=== PATIENT | male | born 1960 | race Caucasian/White ===

== ENCOUNTER 2017-12-05 04:30 | Observation (INO) ==
[~2017-12-05 04:30] MED LIST: Naloxone 0.4 MG/ML INJ IVP PRN
[2017-12-05] MEDS ORDERED: *HR* Heparin 5,000 UNIT/ML VIAL IVP PRN ×2 (04:33)
[2017-12-05] MEDS ORDERED: *HR* OxyCODONE Immed Rel 5 MG TABLET PO PRN (04:34)
--- NOTE | 2017-12-05 04:39 | Internal Med History&Physical ---
Date of Encounter: 12/05/17 Time of Encounter: 04:37 Assessment and Plan (1) Chest pain Current visit: Yes Status: Acute treated as NSTEMI at [facility] and started on heparin gtt will continue heparin gtt here, also needed IV morphine for pain trend trop, nitropaste, watch closely check TTE in the a.m repeat EKG cards eval check lipase cxr Qualifiers: Chest pain type: precordial pain Qualified Code(s): R07.2 - Precordial pain (2) COPD (chronic obstructive pulmonary disease) Current visit: No Status: Chronic now no longer smoking chronic Qualifiers: COPD type: unspecified COPD Qualified Code(s): J44.9 - Chronic obstructive pulmonary disease, unspecified (3) HTN (hypertension) Current visit: No Status: Acute Qualifiers: Hypertension type: essential hypertension Qualified Code(s): I10 - Essential (primary) hypertension (4) CAD (coronary artery disease) Current visit: No Status: Acute hx of [place] and stents Qualifiers: Coronary Disease-Associated Artery/Lesion type: [place] artery Associated angina: with unstable angina Qualified Code(s): I25.110 - Atherosclerotic heart disease of [place] coronary artery with unstable angina pectoris Internal Medicine - H&P: HPI Chief complaint: chest pain History of present illness: Mr. Cleaning is a 57 year old male who presents as a transfer from [facility] for chest pain eval. He has a high risk hx of [place] reported x 3 in 2012-14, 2014 and 2016. Has 7 stents, last one in early 2017 at [facility]. He was seen at [facility] and was started on heparin gtt before transferring to [facility]. He developed symptoms at around 10 pm last evening when he was watching TV. CP along the left side, described sharp-pressure, somewhat changed with movement of his chest and breathing, radiate to the back. He took 3 nitros which did not help. On review, he reports recovering well from a cold 6 weeks ago. EKG personally reviewed with rate 113, sinus tachycardia but with lateral leads t wave flattening/inversion D-dimer tested at [facility] was wnl. Trop measured < 0.012 Past Med Surg Social Fam HX - Past Medical History Medical history: CHF, COPD, coronary artery disease, hyperlipidemia, hypertension, other Psychiatric history: no psych history - Past Surgical History Surgical History: appendectomy, cholecystectomy, other - Social History Smoking Status: Former smoker Alcohol use: none Drug use: none - Family History Father Hx Family Cardiac Disorders: Yes Sister Hx Family Endocrine Disorder: Yes (DM) Mother Hx Family Cardiac Disorders: Yes Hx Family Respiratory Disorders: Yes Hx Family Endocrine Disorder: Yes Internal Medicine - H&P: Meds Aspirin Enteric Coated [Aspirin EC] 325 mg PO DAILY #21 tablet. 09/15/16 [Rx] OxyCODONE Immed Rel [Roxicodone 5 MG] 5 - 10 mg PO Q6HR PRN #40 tablet 09/15/16 [Rx] Albuterol Sulfate [Albuterol Inhaler] 2 puff IH Q4HR PRN 09/16/16 [History] Atorvastatin [Lipitor] 40 mg PO HS 09/16/16 [History] Clopidogrel [Plavix] 75 mg PO DAILY 09/16/16 [History] Ipratropium [ATROVENT Inhaler] 2 puff IH Q6HR 09/16/16 [History] Lisinopril [Zestril] 10 mg PO DAILY 09/16/16 [History] Metoprolol XL (24 HR) Succ [Toprol Xl] 100 mg PO DAILY 09/16/16 [History] Nitroglycerin 1 spray TL AD PRN 09/16/16 [History] amLODIPine [Norvasc] 5 mg PO DAILY 09/16/16 [History] 3 Allergy/AdvReac Type Severity Reaction Status Date / Time acetaminophen AdvReac Hives Verified 09/16/16 08:36 [From Darvocet-N] lorazepam [From Ativan] AdvReac Confusion Verified 09/16/16 08:36 propoxyphene AdvReac Hives Verified 09/16/16 08:36 [From Darvocet-N] All Systems PM: A 10-system review of systems was performed and is negative for pertinent findings except as documented above in the HPI. Review of systems: ROS 14 point review of systems reviewed as best as possible given presentation. Pertinent positive or negative as per HPI or otherwise reviewed as negative - Constitutional Vitals: Temp Pulse Resp BP Pulse Ox 98.5 F 92 17 135/82 93 12/05/17 01:34 12/05/17 01:34 12/05/17 01:34 12/05/17 01:34 12/05/17 01:34 Exam: General - AAO x 3 Psych - Appropriate affect/speech. No agitation Eyes - JEN. Eye lids intact. No scleral icterus Neuro - No gross peripheral or central neuro deficits Heart - Sinus. RRR. S1 and S2 present. No added HS/murmurs appreciated. No elevated JVD appreciated. Lung - Adequate air entry b/l, No crackles/wheezes appreciated GI - Soft, non-tender. No hepatosplenomegaly/ascites. BS+ - No CVA/suprapubic tenderness or palpable bladder distension Skin - Intact. No rash/petechiae/ecchymosis. Warm extremities
[2017-12-05] MEDS ORDERED: Heparin 25,000 UNIT/500 ML D5W 25,000 UNIT/500 ML BAG IVC SCH (04:45)
[2017-12-05] MEDS: Nitroglycerin 1 INCH/GM PACKET TP SCH ×2 (05:03→13:30)
[2017-12-05] MEDS: *HR* Morphine 2 MG/ML SYRINGE IVP PRN ×4 (05:04→21:02)
[2017-12-05 05:28] LABS: Hematocrit 43.3 % (37.5-50.1); Hemoglobin 14.5 g/dL (12.9-16.9); Mean Corpuscular HGB Conc 33.5 g/dL (31.6-35.5); Mean Corpuscular Hemoglobin 32.2 pg (28.0-33.3); Mean Platelet Volume 9.3 fL (9.4-12.4); Platelet Count 254 K/mcL (140-400); Red Blood Count 4.51 M/mcL (4.19-5.50); Red Cell Distribution Width 13.8 % (11.5-14.5)
[2017-12-05 05:46] LABS: INR 1.1; Prothrombin Time 12.1 Seconds (9.4-12.1)
[2017-12-05 05:49] LABS: Activated Partial Thrombo Time 44.4 Seconds (26.0-36.0)
[2017-12-05] MEDS: Aspirin Enteric Coated 325 MG Tablet PO SCH (08:44)
[2017-12-05] MEDS: Metoprolol XL (24 HR) Succ 50 MG TAB.ER.24H PO SCH (08:44)
[2017-12-05] MEDS ORDERED: Ipratropium 1 PUFF INHALER IH SCH (10:00)
[2017-12-05] MEDS: Ipratropium/Albuterol Neb 3 ML IH SCH ×3 (11:13→22:00)
[2017-12-05 11:53] LABS: Basophils # 0.1 K/mcL (0.0-0.2); Eosinophils # 0.3 K/mcL (0.0-0.6); Eosinophils % 3.9 %; Hematocrit 43.6 % (37.5-50.1); Hemoglobin 14.5 g/dL (12.9-16.9); Immature Granulocytes % 0.1 % (0-4); Lymphocytes # 2.1 K/mcL (0.6-4.6); Lymphocytes % 27.2 %; Mean Corpuscular HGB Conc 33.3 g/dL (31.6-35.5); Mean Corpuscular Hemoglobin 31.9 pg (28.0-33.3); Mean Platelet Volume 9.5 fL (9.4-12.4); Monocytes # 0.8 K/mcL (0.0-1.3); Monocytes % 9.7 %; Neutrophils # 4.5 K/mcL (1.6-8.9); Platelet Count 247 K/mcL (140-400); Red Blood Count 4.54 M/mcL (4.19-5.50); Red Cell Distribution Width 13.8 % (11.5-14.5); Segmented Neutrophils % 58.1 %
[2017-12-05] MEDS ORDERED: Adenosine 90 MG/30 ML MLS IV ONE (12:21)
--- NOTE | 2017-12-05 12:38 | Electrocardiograph Report ---
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
[2017-12-05] MEDS ORDERED: Heparin 1,000 UNITS/500 mL 500 ML ONE (14:01)
[2017-12-05] MEDS ORDERED: 0.9 % Sodium Chloride 1,000 ML ONE ×2 (14:01→14:21)
[2017-12-05] MEDS ORDERED: *HR* Heparin 10,000 UNIT/10 ML VIAL ONE (14:01)
[2017-12-05] MEDS ORDERED: Verapamil 5 MG/2 ML VIAL ONE (14:01)
[2017-12-05] MEDS ORDERED: Nitroglycerin 1,000 MCG/10 ML VIAL IV ONE (14:01)
[2017-12-05] MEDS ORDERED: *HR* Midazolam HCl 5 MG/5 ML VIAL IVP ONE (14:24)
[2017-12-05] MEDS ORDERED: *HR* FentaNYL (PF) 100 MCG/2 ML VIAL ONE (14:24)
--- NOTE | 2017-12-05 14:35 | Pre-Sedation Evaluation ---
Pre-sedation evaluation - Pre-sedation checklist Date of procedure: 12/05/17 Procedure: Heart cath Recent Vitals: Last Vital Signs Temp 98.0 F 12/05/17 07:35 Pulse 98 12/05/17 07:35 Resp 17 12/05/17 11:13 BP 132/78 12/05/17 07:35 Pulse Ox 92 12/05/17 11:13 H&P (including ROS) documented in medical record: Yes Previous reaction to sedatives/anesthetics: No Dietary Status: NPO after Midnight Dentition: No loose teeth or bridges ASA Classification *see protocol: CLASS II-Mild systemic disease Plan of Care: Pt appropriate candidate for procedure/moderate/conscious sedation , Risks/benefits of procedure/sedation discussed w/ patient/family
--- NOTE | 2017-12-05 15:03 | Event Note ---
Date of Encounter: 12/05/17 Time of Encounter: 15:00 - Cardiology Event Note Prelim [facility] Normal EF RCA [employer] with left to right collaterals. Mid LCx 50-60% not functionally significant by FFR No lesions for revascularization/PCI.
--- NOTE | 2017-12-05 15:19 | Invasive Diagnostic Lab Proc ---
Name: Manish Cleaning Date of Study: 12/05/2017 Date: 1960 Ht: 64.2in Medical Record#: [id number] Age: 57 Wt: 209.44lb Gender: Male BSA: 2. 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 H&P is on chart. ID band is on and ID verified with patient. Patient NPO for procedure The procedure was described for the patient and questions were answered. Blood Pressure: 132/78 ECG is on chart. Rhythm: NSR Plan of Care Patient will tolerate the procedure without complications. Adequate level of comfort will be maintained. Hemodynamics will remain stable Patient will recover from procedure without complications. Respiratory function will be maintained. Cardiac rhythm will remain stable. Patient temperature will be maintained. Patient and/or family have verbalized understanding of the procedure. Patient Education Intravenous Access Time IV Size Location DC'd Fluid/Drip Rate Units RN 02:12 PM 20g 1 1/4" Patent On Arrival Rt Hand 02:26 PM 22g 1" Patent On Arrival Lt Wrist 0.9NaCl 50 ml/hr Gina Harry RN Allergies ACET./CODEINE (300MG +30MG) Acetaminophen/Propoxyphene N Codeine propoxyphene DARVACET, CODEINE Naproxen lorazepam acetaminophen Vital Signs Time BP (mmHg) HR (bpm) O2 Sat. RR (bpm) LOC 02:13 PM 132 / 78 98 92 % 16 5 = Fully awake and oriented or at pre-proc level 02:24 PM / % 5 = Fully awake and oriented or at pre-proc level 02:30 PM / % 5 = Fully awake and oriented or at pre-proc level 02:30 PM / % 4 = Oriented but drowsy 02:43 PM 121 / 84 86 93 % 25 02:48 PM 121 / 79 84 94 % 20 02:53 PM 114 / 69 87 91 % 20 02:21 PM 157 / 90 78 98 % 16 02:28 PM 145 / 101 75 97 % 11 02:33 PM 136 / 97 80 96 % 18 02:38 PM 136 / 88 85 94 % 24 02:45 PM / % 4 = Oriented but drowsy Procedural Medications Time Medication Dose Units Method Given By 02:18 PM Oxygen 2 L/min nasal cannula Gina Harry RN 02:25 PM Versed 2 mg Intravenous Gina Harry RN 02:26 PM Fentanyl 50 mcg Intravenous Gina Harry RN 02:36 PM Lidocaine 2% 0.5 ml Subcutaneous Venu Shepherd MD, FACC 02:37 PM Heparin 3000 units Nitroglycerin 200 mcg Verapamil 2.5 mg Intraarterial Venu Shepherd MD, FACC 02:49 PM Nitroglycerin 200 mcg Intracoronary Venu Shepherd MD 02:51 PM Adenosine 999 ml/hr Intravenous Gina Harry (RN) 02:54 PM Adenosine 0 ml/hr Intravenous Gina Harry (RN) 03:00 PM Oxygen 4 L/min nasal cannula Gina Harry RN ASA Classification: CLASS II- Mild systemic disease (i.e. well-controlled diabetes, hypertension, asthma, cigarette smoking) Milady Score Preprocedure Postprocedure Activity 2- Moves 4 extremities sustained head lift Activity 2- Moves 4 extremities sustained head lift Circulation 2- SBP +/= 20 points of pre-anesthetic level Circulation 2- SBP +/= 20 points of pre-anesthetic level Consciousness 2- Awake and alert oriented x 3 Consciousness 2- Awake and alert oriented x 3 O2 Saturation 2- Able to maintain O2 satruation of 92% on room air O2 Saturation 2- Able to maintain O2 satruation of 92% on room air Respiratory 2- Able to deep breathe and cough well Respiratory 2- Able to deep breathe and cough well Total Score 10 Total Score 10 Contrast Agent: Isovue Diagnostic Contrast: 83 ml Total Contrast: 83 ml Fluoro Dose: 316 mGy Activated Clotting Time Time Seconds to Clot 02:52 PM 260 Procedure Log Time Note Enter By 02:07 PM CathStat 02:15 PM 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 lparsley 02:15 PM Procedure start 14:15 lparsley 02:17 PM Callie Buenrostro RT Position: Monitor Time in: 14:17 [email or web address] 02:17 PM Santy Rogers RN Position: Scrub Time in: 14:17 [email or web address] 02:17 PM Gina Harry RN Position: Iron Plastic Bullet Maker Time in: 14:17 lparsley 02:18 PM Sites, Estrella RT (R) Position: Time in: 14:18 lparsley 02:18 PM Patient charges- Angio tray pack, Navilyst 3mm J, Pulse Oximetry and ACIST tubing and transducer lparsley 02:18 PM Case Delayed No lparsley 02:18 PM Hair removed from procedure site in procedure lab using clippers. Right wrist & Rt groin prepped with Chloraprep by Gina Harry RN, safety strap applied then patient was draped. Skin intact. lparsley 02:18 PM Physicchaz paged/called 14:18. lparsley 02:18 PM Physicchaz responded and notified patient is ready 14:18 lparsley 02:18 PM Physician arrived 14:18 lparsley 02:18 PM Joseluis and fabi completed [facility] 02:18 PM Sign in performed according to hospital policy. lparsley 02:18 PM Procedure start 14:18 lparsley 02:18 PM Time: 14:18 Oxygen on at 2 L/min per nasal cannula by Gina Harry RN [facility] 02:21 PM Vitals capture started with the following parameters, Patient=Adult, Interval=5 min, Initial Fgavcwmv=763 mmHg, Deflation Rate=5 mmHg, Cuff placed on Left Arm 02:21 PM HR=78 bpm, SXZK=544/90 mmhg, SpO2=98.0 %, Resp=16 B/min, Comment=NSR 02:24 PM Callie Buenrostro RT Position: Scrub Time in: 14:24 [email or web address] 02:24 PM Luly Dotson RN Position: Monitor Time in: 14:24 lpalaquita 02:24 PM Time: 14:23 Patient comfortable and pain free: Yes [email or web address] 02:24 PM Time: 14:24LOC: 5 = Fully awake and oriented or at pre-proc level lparsley 02:26 PM Time: 14:25 Versed 2 mg Intravenous Given by Gina Harry RN 02: PM Time: 14:26 Fentanyl 50 mcg Intravenous Given by Gina Harry RN 02:26 PM NIBP STAT measurement started. 02:27 PM Vitals capture started with the following parameters, Patient=Adult, Interval=5 min, Initial Xhgfpomg=537 mmHg, Deflation Rate=5 mmHg, Cuff placed on Left Arm 02:28 PM HR=75 bpm, VJUA=183/101 mmhg, SpO2=97.0 %, Resp=11 B/min, Comment=NSR 02:28 PM Recorded ECG: HR=77 Condition=Condition 1 02:30 PM Time: 14:30 Patient comfortable and pain free: Yes mm 02:30 PM Time: 14:30LOC: 5 = Fully awake and oriented or at pre-proc level tsoumm 02:32 PM Clinical Presentation: Unstable angina mm 02:33 PM Pressure channel 2 zeroed. 02:33 PM HR=80 bpm, HQJZ=096/97 mmhg, SpO2=96.0 %, Resp=18 B/min, Comment=NSR 02:36 PM Time out performed according to hospital policy mm 02:36 PM Time: 14:36 0.5 ml Lidocaine 2% to right radial Subcutaneous Given by Venu Shepherd MD, [facility] oumm 02:37 PM Access obtained by percutaneous puncture. 6Fr 10cm Terumo Glidesheath sheath placed in right Radial artery. [id number] mm 02:37 PM Time: 14:37 Patient given 3,000 units Heparin, 200 mcg Nitroglycerin, and 2.5 mg Verapamil Intraarterial by Venu Shepherd MD, [facility]. This is given to reduce risk of vessel spasm and thrombosis. tsmm 02:37 PM 5Fr TIG catheter inserted over the wire [facility] mm 02:37 PM 0.035 260cm Navilyst 3mmJ wire [id number] oumm 02:38 PM HR=85 bpm, HRAK=077/88 mmhg, SpO2=94.0 %, Resp=24 B/min, Comment=NSR 02:39 PM Wire removed mm 02:40 PM RCA angiography performed in multiple views. tsoummers 02:40 PM Recorded Pressure: Ao, HR=84, Condition=Condition 1 (Aorta) Ao 99/77/89 02:40 PM LCA angiography performed in multiple views. tsoummers 02:40 PM Recorded Pressure: Ao, HR=87, Condition=Condition 1 (Aorta) Ao 96/73/84 02:43 PM Catheter removed tsoumm 02:43 PM HR=86 bpm, JPHJ=280/84 mmhg, SpO2=93.0 %, Resp=25 B/min, Comment=NSR 02:43 PM 5Fr Pigtail catheter inserted over the wire [facility] tsoumm 02:43 PM Catheter selectively placed in left ventricle tsoummers 02:44 PM Recorded Pressure: LV, HR=91, Condition=Condition 1 (Left Ventricle) LV 112/1/7 02:44 PM Bolus angiogram of left Ventricle complete: 10 ml/sec for a total of 20 mls tsoummers 02:44 PM Recorded Pressure: LV, HR=91, Condition=Condition 1 (Left Ventricle) LV 123/-2/8 02:44 PM Inflation device was opened. tsoummers 02:45 PM Recorded Pressure: LV, Ao, HR=88, Condition=Condition 1 (Left Ventricle) LV 109/0/8, (Aorta) Ao 105/69/83 02:45 PM Time: 14:30 Patient comfortable and pain free: Yes oummers 02:45 PM Time: 14:30LOC: 4 = Oriented but drowsy tsoummers 02:45 PM catheter removed intact. mm 02:46 PM Pressure channel 1 zeroed. 02:47 PM Pressure channel 1 zeroed. 02:47 PM 6Fr CLS 3.0 Runway guide catheter was used to cannulate the PCI vessel successfully. reused? No tsoummers 02:48 PM HR=84 bpm, TBFP=064/79 mmhg, SpO2=94.0 %, Resp=20 B/min, Comment=NSR 02:48 PM .014 [place] 190cm guide wire across target lesion- successful. reused? No tsoummers 02:48 PM Asist FFR Catheter advanced to target lesion. mm 02:49 PM Time: 14:49 Nitroglycerin 200 mcg Intracoronary Given by Venu Shepherd MD 02:49 PM Coronary Dominance: Co-dominant tsoumm 02:49 PM Lesion found in Proximal RCA. Pre Stenosis: 100 Pre ANIYAH Flow: 0: No Flow/No perfusion tsoummers 02:50 PM Lesion found in Mid LAD. Pre Stenosis: 50 Pre ANIYAH Flow: oummers 02:50 PM Lesion found in LMCA. Pre Stenosis: 20 Pre ANIYAH Flow: tsoummers 02:50 PM Left Main Coronary Artery with 20% stenosis tsoummers 02:50 PM Right Coronary, Right Posterior Descending Arteries with Right Posterolateral and Acute Marginal branches with 100 % stenosis. tsoummers 02:50 PM Mid/Distal Left Anterior Descending Coronary Artery and diagonal branches with 50% stenosis. tsoumm 02:51 PM Recorded Pressure: Ao, HR=86, Condition=Condition 1 (Aorta) Ao 104/80/91 02:52 PM Time: 14:51 Adenosine 999 ml/hr administered Intravenous by Gina Harry (RN) [facility] PM Santy Rogers RN Position: Nurse Time in: 14:52 oumm 02:52 PM Recorded Pressure: Ao, HR=83, Condition=Condition 1 (Aorta) Ao 104/69/84 02:53 PM HR=87 bpm, RKFO=226/69 mmhg, SpO2=91.0 %, Resp=20 B/min, Comment=NSR 02:54 PM Adenosine off. 02:54 PM Time: 14:54 Adenosine 0 ml/hr administered Intravenous by Gina Harry (RN) [facility] 02:54 PM FFR Measurement: 0.91 [facility] 02:55 PM Flow Wire/Catheter removed intact mm 02:55 PM Guide wire removed intact. mm 02:55 PM Guide catheter removed intact. [facility] 02:56 PM Procedure completed at 14:56 [facility] 02:57 PM ASA Class CLASS II- Mild systemic disease (i.e. well-controlled diabetes, hypertension, asthma, cigarette smoking) [facility] 02:57 PM Sign out completed: Radiation Dose 316.41 mGy Fluoro Time: 3.2 Isovue 370 - 200ml contrast 83 ml given by Venu Shepherd MD, FACC. Complications: NoneCardiac Rehab Consult needed: NoConfirmed administered medications: Yes [facility] 02:58 PM Isovue 370 - 200ml,1 Bottle(s) used. mm 02:58 PM Arterial sheath pulled, Vasc Band closure device used and was Successful S/N. mm 02:58 PM 10 ml air in Vasc Band. oumm 02:58 PM Estimated Blood Loss: minimal 02:58 PM Post ECG NSR mm 02:58 PM Post Blood Pressure 123/75 oumm 02:58 PM 14:58 Post Pulses Rt Radial 1+ 02:58 PM Information taught Cardiac Cath and IVUS/Flowire 02:58 PM Education needs Procedure, Plan of Care, and Responsibilities of Patient in Care oumm 02:58 PM Learning barriers :None 02:59 PM Education Methods Verbal 02:59 PM Education evaluation Able to repeat information 02:59 PM Site status No bleeding/hematoma - Rt Wrist as reported by Callie Buenrostro RT at 14:59 mm 02:59 PM Plavix, Effient or Brilinta given No oumm 02:59 PM Delay to floor No oumm 02:59 PM Complications: None mm 02:59 PM At 14:52 the ACT was 260 seconds. 02:59 PM Fluoro Time: 3.2 02:59 PM Isovue 370 - 200ml contrast 83 ml given by Venu Shepherd MD, [facility]. mm 02:59 PM Radiation Dose 316.41 mGy mm 03:00 PM Time: 15:00 Oxygen on at 4 L/min per nasal cannula by Gina Harry RN 03:01 PM Time: 14:45LOC: 4 = Oriented but drowsy oumm 03:01 PM Time: 14:45 Patient comfortable and pain free: Yes mm 03:05 PM Lesion found in Mid Circumflex. Pre Stenosis: 60 Pre ANIYAH Flow: 3: Complete and Brisk Flow/Perfusion tsoumm 03:05 PM Circumflex, Obtuse Marginal, Left Posterior Descending, and Left Posterolateral Coronary Arteries with 60 % stenosis. tsoumm 03:12 PM Patient out of room: 15:12 tom Complications Complication None Hemodynamics Pressures Site Systolic/A Wave Diastolic/V Wave Mean AO 99 77 89 AO 96 73 84 LV 112 1 7 LV 123 -2 8 LV 109 0 8 AO 105 69 83 AO 104 80 91 AO 104 69 84 Post Procedure Information Blood Pressure: 123/75 mmHg Rhythm: NSR Post procedural instructions were given Closure Device Time Device Success/Fail 12/05/2017 2:57:00 PM Mechanical Compression Successful Site Checks Time Location Status Staff Sheath In? Note 02:59 PM Rt Wrist No bleeding/hematoma Callie Buenrostro RT Pulses Time Site Pre-Procedure Post-Procedure Note 12/05/2017 2:13:00 PM Bilateral DP & PT 2+ 12/05/2017 2:13:00 PM Bilateral radial 2+ 2:58:00 PM Rt Radial 1+ Updated by Luly Dotson RN on 12/05/2017 3:13:25 PM electronically signed on 12/05/2017 3:13:51 PM with status of Final
--- NOTE | 2017-12-05 16:31 | Event Note ---
Date of Encounter: 12/05/17 Time of Encounter: 16:30 - Cardiology Event Note Per 's event note. No intervention needed on [facility]. Cardiology will sign off and will follow in outpatient setting.
[2017-12-06] MEDS: *HR* Morphine 2 MG/ML SYRINGE IVP PRN (01:14)
[2017-12-06] MEDS: Ipratropium/Albuterol Neb 3 ML IH SCH ×2 (03:39→09:20)
[2017-12-06] MEDS: Nitroglycerin 1 INCH/GM PACKET TP SCH (05:31)
[2017-12-06 07:40] LABS: Alanine Aminotransferase 27 Units/L (7-52); Albumin 3.5 g/dL (3.5-5.7); Albumin/Globulin Ratio 1.3 (1.1-2.2); Alkaline Phosphatase 76 Units/L (34-104); Aspartate Amino Transferase 14 Units/L (13-39); BUN/Creatinine Ratio 18 (6-26); Bilirubin,Total 0.4 mg/dL (0.3-1.0); Blood Urea Nitrogen 16 mg/dL (6-20); Calcium 9.1 mg/dL (8.6-10.3); Carbon Dioxide 26 mEq/L (23-29); Chloride 106 mEq/L (98-107); Globulin 2.8 g/dL (2.4-3.5); Glucose 114 mg/dL (70-105); Osmolality,Calculated 288 (280-300); Potassium 3.7 mEq/L (3.5-5.1); Sodium 138 mEq/L (136-145); Total Protein 6.3 g/dL (6.4-8.9); eGFR For African Americans > 60 (> 60); eGFR For Non-African Americans > 60 (> 60)
[2017-12-06] MEDS: Aspirin Enteric Coated 325 MG Tablet PO SCH (07:49)
[2017-12-06] MEDS: Metoprolol XL (24 HR) Succ 50 MG TAB.ER.24H PO SCH (07:50)
--- NOTE | 2017-12-06 11:21 | Discharge Summary ---
Date of Encounter: 12/06/17 Time of Encounter: 11:19 - Discharge Diagnosis (1) Chest pain Priority: Primary Status: Acute Qualifiers: Chest pain type: precordial pain Qualified Code(s): R07.2 - Precordial pain (2) COPD (chronic obstructive pulmonary disease) Priority: Secondary Status: Chronic Qualifiers: COPD type: unspecified COPD Qualified Code(s): J44.9 - Chronic obstructive pulmonary disease, unspecified (3) HTN (hypertension) Priority: Secondary Status: Chronic Qualifiers: Hypertension type: essential hypertension Qualified Code(s): I10 - Essential (primary) hypertension (4) CAD (coronary artery disease) Priority: Secondary Status: Chronic Qualifiers: Coronary Disease-Associated Artery/Lesion type: [place] artery [place] vs. transplanted heart: [place] heart Associated angina: with unstable angina Qualified Code(s): I25.110 - Atherosclerotic heart disease of [place] coronary artery with unstable angina pectoris - Discharge Medications Home Medications: Aspirin Enteric Coated [Aspirin EC] 325 mg PO DAILY #21 tablet. 09/15/16 [Rx] Albuterol Sulfate [Albuterol Inhaler] 2 puff IH Q4HR PRN 09/16/16 [History] Atorvastatin [Lipitor] 40 mg PO HS 09/16/16 [History] Clopidogrel [Plavix] 75 mg PO DAILY 09/16/16 [History] Lisinopril [Zestril] 10 mg PO DAILY 09/16/16 [History] Metoprolol XL (24 HR) Succ [Toprol Xl] 100 mg PO DAILY 09/16/16 [History] amLODIPine [Norvasc] 2.5 mg PO DAILY 09/16/16 [History] Gabapentin [Neurontin] 600 mg PO HS 12/05/17 [History] HYDROcodone/Acet 5/325 mg [[place] 5-325 mg] 2 tab PO Q8H PRN 12/05/17 [History] Allergies/Adverse Reactions: 3 Allergy/AdvReac Type Severity Reaction Status Date / Time acetaminophen Allergy Hives Verified 12/05/17 09:56 [From Darvocet-N] propoxyphene Allergy Hives Verified 12/05/17 09:56 [From Darvocet-N] lorazepam [From Ativan] AdvReac Confusion Verified 09/16/16 08:36 Procedures/tests Complete & Pending: Procedures Performed prior 72 hours Category Date Time Status CL Cardiac Catheterization [CL] Routine [employer] Vice President 12/05/17 11:49 Ordered EKG [ECG 12 lead ECG] [ECG] Stat Y 12/05/17 04:19 Completed EV echocardiogram Routine Y 12/05/17 04:32 Completed Date of admission: 12/05/17 01:16 Primary care physician: PCP NONE Consults: 12/05/17 04:36 Consult to Cardiology [CONS] Routine Comment: Consulting Provider: Cardiology Alyssa Reason for Consult: chest pain Call Completed: No Discharging clinician: Reema Root Anticipated date of discharge: 12/06/17 - Patient Status Disposition: Home, Self-Care Condition: Good Functional capacity at discharge: independent ambulation Overall status at discharge: patient is progressing back to baseline - Discharge Instructions Instructions: Chest Pain (DC) Follow Up With: NONE,PCP [Primary Care Provider] - Additional Instructions: F/up with Cardiology in [place] in 2-4 weeks F/up with PCP in 1-2 weeks - Diet and Activity Activity: resume usual activities as tolerated Diet: low fat, low cholesterol, low salt diet Hospital course: Mr. Cleaning is a 57 year old male with the above medical problems, was admitted with retrosternal chest pain. Patient was noted to have no acute ischemic changes on EKG, serum troponins remained normal. He has been started on IV heparin drip in the emergency room due to concern for ongoing chest pain with extensive cardiac history including multiple PTCAs in the past. Patient was continued on aspirin, Plavix, beta nubia, LISSETH inhibitor and statin. He was evaluated by cardiology and underwent left heart catheterization, which revealed no significant stenosis, no PCI was indicated. He is medically stable for discharge with outpatient cardiology follow-up. He is currently chest pain-free. - Time Spent with Patient Total time spent providing and/or coordinating discharge services: Greater than 30 minutes (40 min) - Constitutional Vitals: Temp Pulse Resp BP Pulse Ox 98.2 F 71 16 125/78 95 12/06/17 07:10 12/06/17 07:10 12/06/17 09:21 12/06/17 07:10 12/06/17 09:21 General appearance: Present: A&O X 3, answers questions appropriately - Cardiovascular Cardiovascular exam: Present: RRR, +S1, +S2. Absent: diastolic murmur, gallop, rubs, systolic murmur
[2017-12-06 11:24] VITALS: BP 146/99
== END 2017-12-06 12:22 | disposition home or self-care (01) ==
LOC: 2ANU
PROVIDERS: ADMIT Internal Medicine; ATTEND Internal Medicine

== ENCOUNTER 2021-04-13 22:27 | Observation (INO) ==
[2021-04-14] MEDS ORDERED: Naloxone 0.4 MG/ML INJ IVP PRN (00:50)
[2021-04-14] MEDS ORDERED: Ondansetron 4 MG/2 ML VIAL IVP PRN (00:50)
[2021-04-14] MEDS: Morphine Sulfate 2 MG/ML SYRINGE IVP PRN ×5 (01:31→20:25)
[2021-04-14 05:09] LABS: Hematocrit 45.8 % (37.5-50.1); Hemoglobin 15.2 g/dL (12.9-16.9); Mean Corpuscular HGB Conc 33.2 g/dL (31.6-35.5); Mean Corpuscular Hemoglobin 32.1 pg (28.0-33.3); Mean Corpuscular Volume 96.8 fL (83.0-100.0); Mean Platelet Volume 9.5 fL (9.4-12.4); Platelet Count 187 K/mcL (140-400); Red Blood Count 4.73 M/mcL (4.19-5.50); Red Cell Distribution Width 12.9 % (11.5-14.5); White Blood Count 5.1 K/mcL (4.3-11.1)
[2021-04-14 07:36] LABS: BUN/Creatinine Ratio 19 (6-26); Blood Urea Nitrogen 16 mg/dL (6-20); Calcium 9.1 mg/dL (8.6-10.3); Carbon Dioxide 21 mEq/L (23-29); Chloride 99 mEq/L (98-107); Chol/HDL Ratio 4.3 (0-4.9); Cholesterol 151 mg/dL (< 200); Glucose 108 mg/dL (70-105); HDL Cholesterol 35 mg/dL (40-59); LDL Cholesterol,Calculated 93 mg/dL (< 100); Osmolality,Calculated 278 (280-300); Potassium 4.8 mEq/L (3.5-5.1); Sodium 133 mEq/L (136-145); Triglycerides 113 mg/dL (< 150); eGFR For African Americans > 60 (> 60); eGFR For Non-African Americans > 60 (> 60)
[2021-04-14] MEDS ORDERED: Regadenoson 0.4 MG/5 ML SYRINGE IVP ONE (07:45)
[2021-04-14] MEDS: Ipratropium 1 PUFF INHALER IH SCH ×3 (11:22→22:28)
[2021-04-14] MEDS: Aspirin 81 MG TAB.CHEW PO SCH (11:36)
[2021-04-14] MEDS ORDERED: methylPREDNISolone 125 MG/2 ML VIAL IVP ONE (11:56)
[2021-04-14] MEDS: levoFLOXacin 750 MG/150 ML 750 MG/150 ML BAG IVPB SCH (12:55)
[2021-04-14] MEDS: Isosorbide MONOnitrate (24 HR) 30 MG TAB.ER.24H PO SCH (19:32)
[2021-04-14] MEDS: Ranolazine 500 MG TAB.ER.12H PO SCH (19:33)
[2021-04-14] MEDS: Budesonide/Formoterol 160/4.5 1 PUFF INH IH SCH (22:29)
[2021-04-15] MEDS: Morphine Sulfate 2 MG/ML SYRINGE IVP PRN ×3 (00:38→09:46)
[2021-04-15] MEDS: Gabapentin 300 MG CAPSULE PO SCH ×2 (01:07→09:03)
[2021-04-15 01:39] LABS: BUN/Creatinine Ratio 26 (6-26); Blood Urea Nitrogen 22 mg/dL (6-20); Calcium 9.1 mg/dL (8.6-10.3); Carbon Dioxide 26 mEq/L (23-29); Chloride 99 mEq/L (98-107); Glucose 202 mg/dL (70-105); Osmolality,Calculated 283 (280-300); Potassium 4.4 mEq/L (3.5-5.1); Sodium 132 mEq/L (136-145); eGFR For African Americans > 60 (> 60); eGFR For Non-African Americans > 60 (> 60)
[2021-04-15] MEDS: Ipratropium 1 PUFF INHALER IH SCH ×2 (04:18→10:22)
[2021-04-15] MEDS ORDERED: *HR* Enoxaparin 40 MG/0.4 ML SYRINGE SQ SCH (06:00)
[2021-04-15 07:55] VITALS: BP 135/70
[2021-04-15] MEDS: Ranolazine 500 MG TAB.ER.12H PO SCH (09:00)
[2021-04-15] MEDS ORDERED: Metoprolol XL (24 HR) Succ 50 MG TAB.ER.24H PO SCH (09:00)
[2021-04-15] MEDS ORDERED: Furosemide 40 MG TABLET PO SCH (09:00)
[2021-04-15] MEDS ORDERED: Sacubitril/Valsartan 49/51 MG 1 TABLET PO SCH (09:00)
[2021-04-15] MEDS ORDERED: predniSONE 20 MG TABLET PO SCH (09:00)
[2021-04-15] MEDS: Aspirin 81 MG TAB.CHEW PO SCH (09:01)
[2021-04-15] MEDS: Isosorbide MONOnitrate (24 HR) 30 MG TAB.ER.24H PO SCH (09:04)
[2021-04-15] MEDS: levoFLOXacin 750 MG/150 ML 750 MG/150 ML BAG IVPB SCH (09:08)
[2021-04-15] MEDS: Budesonide/Formoterol 160/4.5 1 PUFF INH IH SCH (10:21)
== END 2021-04-15 12:32 | disposition home or self-care (01) ==
LOC: 2NENU → SUATTDRO 04-14 00:09
PROVIDERS: ADMIT Internal Medicine; ATTEND Internal Medicine

== ENCOUNTER 2021-05-22 20:22 | Observation (INO) ==
[2021-05-22] MEDS ORDERED: Aspirin 81 MG TAB.CHEW PO ONE (20:40)
[2021-05-22 21:04] LABS: Basophils # 0.1 K/mcL (0.0-0.2); Basophils % 1.1 %; Eosinophils # 0.2 K/mcL (0.0-0.6); Eosinophils % 3.8 %; Hematocrit 37.2 % (37.5-50.1); Hemoglobin 12.3 g/dL (12.9-16.9); Immature Granulocytes % 0.2 % (0-4); Lymphocytes # 1.4 K/mcL (0.6-4.6); Lymphocytes % 25.7 %; Mean Corpuscular HGB Conc 33.1 g/dL (31.6-35.5); Mean Corpuscular Hemoglobin 32.8 pg (28.0-33.3); Mean Corpuscular Volume 99.2 fL (83.0-100.0); Mean Platelet Volume 9.8 fL (9.4-12.4); Monocytes # 0.8 K/mcL (0.0-1.3); Platelet Count 204 K/mcL (140-400); Red Blood Count 3.75 M/mcL (4.19-5.50); Red Cell Distribution Width 13.9 % (11.5-14.5); Segmented Neutrophils % 54.2 %; White Blood Count 5.5 K/mcL (4.3-11.1)
[2021-05-22] MEDS ORDERED: Morphine Sulfate 2 MG/ML SYRINGE IVP ONE (21:06)
[2021-05-22] MEDS ORDERED: Nitroglycerin 0.4 MG TAB.SUBL SL PRN (21:11)
[2021-05-22 21:15] LABS: Reactive Lymphocytes Present (Not Present)
[2021-05-22 21:23] LABS: INR 1.1; Prothrombin Time 12.6 Seconds (9.4-12.1)
[2021-05-22 21:26] LABS: Activated Partial Thrombo Time 30.8 Seconds (26.0-36.0)
[2021-05-22 21:26] LABS: BUN/Creatinine Ratio 12 (6-26); Blood Urea Nitrogen 11 mg/dL (6-20); Calcium 8.9 mg/dL (8.6-10.3); Carbon Dioxide 25 mEq/L (23-29); Chloride 104 mEq/L (98-107); Glucose 114 mg/dL (70-105); Osmolality,Calculated 288 (280-300); Potassium 3.2 mEq/L (3.5-5.1); Sodium 139 mEq/L (136-145); eGFR For African Americans > 60 (> 60); eGFR For Non-African Americans > 60 (> 60)
[2021-05-22 21:27] LABS: Troponin I < 0.03 ng/mL (< 0.04)
[2021-05-22] MEDS ORDERED: Naloxone 0.4 MG/ML INJ IVP PRN (23:53)
[2021-05-22] MEDS ORDERED: Ondansetron 4 MG/2 ML VIAL IVP PRN (23:53)
[2021-05-23 01:52] LABS: Hematocrit 36.5 % (37.5-50.1); Hemoglobin 11.8 g/dL (12.9-16.9); Mean Corpuscular HGB Conc 32.3 g/dL (31.6-35.5); Mean Corpuscular Hemoglobin 32.2 pg (28.0-33.3); Mean Corpuscular Volume 99.5 fL (83.0-100.0); Mean Platelet Volume 10.2 fL (9.4-12.4); Platelet Count 197 K/mcL (140-400); Red Blood Count 3.67 M/mcL (4.19-5.50); Red Cell Distribution Width 14.1 % (11.5-14.5); White Blood Count 4.4 K/mcL (4.3-11.1)
[2021-05-23 02:01] LABS: BUN/Creatinine Ratio 13 (6-26); Blood Urea Nitrogen 12 mg/dL (6-20); Calcium 8.8 mg/dL (8.6-10.3); Carbon Dioxide 26 mEq/L (23-29); Chloride 103 mEq/L (98-107); Glucose 99 mg/dL (70-105); Osmolality,Calculated 296 (280-300); Potassium 3.5 mEq/L (3.5-5.1); Sodium 143 mEq/L (136-145); eGFR For African Americans > 60 (> 60); eGFR For Non-African Americans > 60 (> 60)
[2021-05-23] MEDS ORDERED: Perflutren Lipid Microsphere 1.3 ML in 0.9 % Sodium Chloride 8.7 ML IVP PRN (04:15)
[2021-05-23] MEDS: Morphine Sulfate 2 MG/ML SYRINGE IVP PRN ×3 (04:22→14:22)
[2021-05-23] MEDS ORDERED: Ipratropium/Albuterol Neb 3 ML IH PRN (10:12)
[2021-05-23] MEDS: Gabapentin 300 MG CAPSULE PO SCH ×2 (15:40→23:09)
[2021-05-23] MEDS: Furosemide 40 MG TABLET PO SCH (15:40)
[2021-05-23] MEDS: Isosorbide MONOnitrate (24 HR) 60 MG TAB.ER.24H PO SCH (15:40)
[2021-05-23] MEDS: Budesonide/Formoterol 160/4.5 1 PUFF INH IH SCH (20:10)
[2021-05-23] MEDS ORDERED: Morphine Sulfate 2 MG/ML SYRINGE IVP ONE (21:16)
[2021-05-23] MEDS ORDERED: Morphine Sulfate 2 MG/ML SYRINGE ONE (21:40)
[2021-05-23] MEDS: Sacubitril/Valsartan 49/51 MG 1 TABLET PO SCH (23:09)
[2021-05-23] MEDS: Ranolazine 500 MG TAB.ER.12H PO SCH (23:09)
[2021-05-23] MEDS ORDERED: Ibuprofen 600 MG TABLET PO ONE (23:25)
[2021-05-24] MEDS ORDERED: Ibuprofen 600 MG TABLET PO ONE (03:45)
[2021-05-24] MEDS: Metoprolol XL (24 HR) Succ 50 MG TAB.ER.24H PO SCH (08:12)
[2021-05-24] MEDS: Sacubitril/Valsartan 49/51 MG 1 TABLET PO SCH ×2 (08:12→23:26)
[2021-05-24] MEDS: Furosemide 40 MG TABLET PO SCH (08:12)
[2021-05-24] MEDS: Gabapentin 300 MG CAPSULE PO SCH ×3 (08:12→23:27)
[2021-05-24] MEDS: Ranolazine 500 MG TAB.ER.12H PO SCH ×2 (08:13→23:26)
[2021-05-24] MEDS: Aspirin Enteric Coated 81 MG Tablet PO SCH (08:13)
[2021-05-24] MEDS: Isosorbide MONOnitrate (24 HR) 60 MG TAB.ER.24H PO SCH (08:13)
[2021-05-24 08:47] LABS: Hematocrit 36.9 % (37.5-50.1); Hemoglobin 12.1 g/dL (12.9-16.9); Mean Corpuscular HGB Conc 32.8 g/dL (31.6-35.5); Mean Corpuscular Hemoglobin 32.5 pg (28.0-33.3); Mean Corpuscular Volume 99.2 fL (83.0-100.0); Platelet Count 228 K/mcL (140-400); Red Blood Count 3.72 M/mcL (4.19-5.50); Red Cell Distribution Width 13.8 % (11.5-14.5); White Blood Count 5.3 K/mcL (4.3-11.1)
[2021-05-24] MEDS ORDERED: Isosorbide MONOnitrate (24 HR) 30 MG TAB.ER.24H PO SCH (09:00)
[2021-05-24] MEDS: Budesonide/Formoterol 160/4.5 1 PUFF INH IH SCH ×2 (09:56→19:44)
[2021-05-24] MEDS ORDERED: Morphine Sulfate 2 MG/ML SYRINGE IVP ONE (21:18)
[2021-05-25] MEDS: Budesonide/Formoterol 160/4.5 1 PUFF INH IH SCH (07:55)
[2021-05-25] MEDS ORDERED: Isosorbide MONOnitrate (24 HR) 30 MG TAB.ER.24H PO SCH (09:00)
[2021-05-25] MEDS: Ranolazine 500 MG TAB.ER.12H PO SCH (10:31)
[2021-05-25] MEDS: Sacubitril/Valsartan 49/51 MG 1 TABLET PO SCH (10:31)
[2021-05-25] MEDS: Gabapentin 300 MG CAPSULE PO SCH (10:31)
[2021-05-25] MEDS: Furosemide 40 MG TABLET PO SCH (10:31)
[2021-05-25] MEDS: Metoprolol XL (24 HR) Succ 50 MG TAB.ER.24H PO SCH (10:31)
[2021-05-25] MEDS: Aspirin Enteric Coated 81 MG Tablet PO SCH (10:31)
[2021-05-25 11:44] VITALS: BP 104/68
== END 2021-05-25 14:32 | disposition home or self-care (01) ==
LOC: EMEROOARM 20:22 → 3BNU 20:22 → SUATTDRO 23:35 → 3BNU 05-23 00:04
PROVIDERS: ADMIT Internal Medicine; ATTEND Nurse Practitioner

== ENCOUNTER 2021-08-17 02:07 | Inpatient (IN) ==
[2021-08-17 03:08] LABS: VBG HCO3 22 mEq/L (21-27); VBG PCO2 34 mmHg (41-51); VBG PH 7.42 pH Units (7.32-7.42); VBG PO2 35 mmHg (25-50)
[2021-08-17] MEDS ORDERED: Morphine Sulfate 2 MG/ML SYRINGE IVP ONE (03:10)
[2021-08-17 03:12] LABS: Basophils % 0.5 %; Eosinophils % 0.1 %; Hematocrit 49.1 % (37.5-50.1); Hemoglobin 16.9 g/dL (12.9-16.9); Immature Granulocytes % 0.6 % (0-4); Lymphocytes # 0.7 K/mcL (0.6-4.6); Lymphocytes % 8.2 %; Mean Corpuscular HGB Conc 34.4 g/dL (31.6-35.5); Mean Corpuscular Hemoglobin 32.8 pg (28.0-33.3); Mean Corpuscular Volume 95.2 fL (83.0-100.0); Mean Platelet Volume 9.7 fL (9.4-12.4); Neutrophils # 6.7 K/mcL (1.6-8.9); Platelet Count 179 K/mcL (140-400); Red Blood Count 5.16 M/mcL (4.19-5.50); Segmented Neutrophils % 78.6 %; White Blood Count 8.5 K/mcL (4.3-11.1)
[2021-08-17] MEDS ORDERED: 0.9 % Sodium Chloride 500 ML IV ONE (03:13)
[2021-08-17 03:21] LABS: BUN/Creatinine Ratio 14 (6-26); Blood Urea Nitrogen 13 mg/dL (6-20); Calcium 9.4 mg/dL (8.6-10.3); Carbon Dioxide 21 mEq/L (23-29); Chloride 91 mEq/L (98-107); Glucose 104 mg/dL (70-105); Osmolality,Calculated 270 (280-300); Potassium 3.3 mEq/L (3.5-5.1); Sodium 130 mEq/L (136-145); eGFR For African Americans > 60 (> 60); eGFR For Non-African Americans > 60 (> 60)
[2021-08-17 03:22] LABS: INR 1.1; Prothrombin Time 12.2 Seconds (9.4-12.1)
[2021-08-17 03:25] LABS: Activated Partial Thrombo Time 31.5 Seconds (26.0-36.0)
[2021-08-17 03:39] LABS: Troponin I 0.05 ng/mL (< 0.04)
[2021-08-17 04:02] LABS: Influenza A PCR Negative (Negative); Influenza B PCR Negative (Negative); Resp. Syncytial Virus PCR Negative (Negative)
[2021-08-17 04:08] LABS: SARS-CoV-2 by PCR (In House) Negative (Negative)
[2021-08-17] MEDS ORDERED: Isovue-370 500 ML BOTTLE IVP ONE (04:25)
[2021-08-17] MEDS ORDERED: Potassium Chloride Elixir 20 MEQ/15 ML UDC PO ONE (06:02)
[2021-08-17 06:12] LABS: Bilirubin,Urine Small (Negative); Blood,Urine Trace (Negative); Clarity,Urine Turbid (Clear); Color,Urine Yellow (Yellow); Glucose,Urine (UA) Normal (Normal); Hyaline Casts,Urine Few per lpf (None Seen); Ketones,Urine 60 mg/dL (Negative); Leukocyte Esterase,Urine Small (Negative); Mucus,Urine Few per lpf (None-Few); Nitrite,Urine Negative (Negative); PH,Urine 6.5 pH Units (5.0-8.0); Protein,Urine 200 mg/dL (Neg-Trace); Specific Gravity,Urine > 1.030 (1.010-1.025); Squamous Epithelial Cell,Urine Few per hpf (None-Few); WBC,Urine 15-30 per hpf (0-3)
[2021-08-17] MEDS ORDERED: cefTRIAXone 1,000 MG in Water for inj. (sterile) 10 ML IVP ONE (06:38)
[2021-08-17] MEDS ORDERED: Naloxone 0.4 MG/ML INJ IVP PRN (06:41)
[2021-08-17] MEDS ORDERED: Melatonin 3 MG TABLET PO PRN (06:41)
[2021-08-17] MEDS ORDERED: Aspirin 325 MG TABLET PO ONE (06:58)
[2021-08-17] MEDS ORDERED: *HR* LORazepam 2 MG/ML VIAL IVP PRN ×3 (07:08)
[2021-08-17] MEDS: Metoprolol XL (24 HR) Succ 50 MG TAB.ER.24H PO SCH ×2 (08:00→09:45)
[2021-08-17 08:04] LABS: Amphetamine Screen,Urine Positive ng/mL (Cutoff=1000); Barbiturate Screen,Urine Negative ng/mL (Cutoff=200)
[2021-08-17 08:05] LABS: Benzodiazepines Screen,Urine Negative ng/mL (Cutoff=300); Cannabinoid Screen,Urine Negative ng/mL (Cutoff = 50); Cocaine Screen,Urine Negative ng/mL (Cutoff= 300); Opiate Screen,Urine Positive ng/mL (Cutoff=300); Phencyclidine Screen,Urine Negative ng/mL (Cutoff=25)
[2021-08-17] MEDS ORDERED: 0.9 % Sodium Chloride 1,000 ML IVC SCH (08:15)
[2021-08-17] MEDS ORDERED: Furosemide 40 MG TABLET PO SCH (09:00)
[2021-08-17] MEDS ORDERED: GI Cocktail 40 ML EACH PO ONE (09:44)
[2021-08-17] MEDS: Folic Acid 1 MG TABLET PO SCH (09:45)
[2021-08-17] MEDS: cefTRIAXone 1,000 MG in Water for inj. (sterile) 10 ML IVP SCH (09:45)
[2021-08-17] MEDS ORDERED: diazePAM 10 MG/2 ML SYRINGE IVP ONE (09:46)
[2021-08-17] MEDS: 0.9 % Sodium Chloride 1,000 ML IVC SCH ×2 (09:46→23:32)
[2021-08-17] MEDS: Thiamine (B-1) 100 MG in 0.9 % Sodium Chloride 50 ML IVPB SCH (10:17)
[2021-08-17 11:14] LABS: Albumin 4.4 g/dL (3.5-5.7); Albumin/Globulin Ratio 1.4 (1.1-2.2); Bilirubin,Direct 0.2 mg/dL (0.0-0.2); Bilirubin,Indirect 0.8 mg/dL (0.0-1.0); Globulin 3.1 g/dL (2.4-3.5); Magnesium 2.2 mg/dL (1.6-2.6); Phosphorous 3.1 mg/dL (2.7-4.5); Total Protein 7.5 g/dL (6.4-8.9)
[2021-08-17] MEDS ORDERED: diazePAM 10 MG/2 ML SYRINGE IVP PRN ×3 (13:36)
[2021-08-17] MEDS: *HR* Heparin 5,000 UNIT/ML VIAL SQ SCH (16:18)
[2021-08-17] MEDS: diazePAM 10 MG/2 ML SYRINGE IVP PRN ×2 (16:19→20:54)
[2021-08-18 02:10] LABS: BUN/Creatinine Ratio 25 (6-26); Blood Urea Nitrogen 27 mg/dL (6-20); Calcium 8.7 mg/dL (8.6-10.3); Carbon Dioxide 22 mEq/L (23-29); Chloride 99 mEq/L (98-107); Glucose 74 mg/dL (70-105); Osmolality,Calculated 284 (280-300); Potassium 3.4 mEq/L (3.5-5.1); Sodium 135 mEq/L (136-145); eGFR For African Americans > 60 (> 60); eGFR For Non-African Americans > 60 (> 60)
[2021-08-18 02:14] LABS: Basophils # 0.1 K/mcL (0.0-0.2); Eosinophils # 0.1 K/mcL (0.0-0.6); Eosinophils % 1.1 %; Hematocrit 43.1 % (37.5-50.1); Immature Granulocytes % 0.5 % (0-4); Lymphocytes # 1.1 K/mcL (0.6-4.6); Lymphocytes % 17.7 %; Mean Corpuscular HGB Conc 33.6 g/dL (31.6-35.5); Mean Corpuscular Hemoglobin 32.8 pg (28.0-33.3); Mean Corpuscular Volume 97.5 fL (83.0-100.0); Mean Platelet Volume 10.1 fL (9.4-12.4); Monocytes # 0.8 K/mcL (0.0-1.3); Monocytes % 13.5 %; Neutrophils # 4.1 K/mcL (1.6-8.9); Platelet Count 152 K/mcL (140-400); Red Blood Count 4.42 M/mcL (4.19-5.50); Red Cell Distribution Width 15.7 % (11.5-14.5); Segmented Neutrophils % 66.2 %; White Blood Count 6.2 K/mcL (4.3-11.1)
[2021-08-18 02:26] LABS: Hemoglobin 14.5 g/dL (12.9-16.9)
[2021-08-18] MEDS: diazePAM 10 MG/2 ML SYRINGE IVP PRN ×4 (03:24→22:47)
[2021-08-18] MEDS: *HR* Heparin 5,000 UNIT/ML VIAL SQ SCH ×2 (05:32→18:16)
[2021-08-18] MEDS: Thiamine (B-1) 100 MG in 0.9 % Sodium Chloride 50 ML IVPB SCH (09:33)
[2021-08-18] MEDS: cefTRIAXone 1,000 MG in Water for inj. (sterile) 10 ML IVP SCH (09:34)
[2021-08-18] MEDS: Aspirin 81 MG TAB.CHEW PO SCH (09:34)
[2021-08-18] MEDS: Metoprolol XL (24 HR) Succ 50 MG TAB.ER.24H PO SCH (09:34)
[2021-08-18] MEDS: Folic Acid 1 MG TABLET PO SCH (09:35)
[2021-08-18] MEDS: 0.9 % Sodium Chloride 1,000 ML IVC SCH (14:11)
[2021-08-18] MEDS ORDERED: Haloperidol Lactate 5 MG/ML VIAL IVP ONE (23:32)
[2021-08-19 05:36] LABS: Basophils # 0.1 K/mcL (0.0-0.2); Basophils % 1.1 %; Eosinophils # 0.2 K/mcL (0.0-0.6); Eosinophils % 3.3 %; Hematocrit 41.5 % (37.5-50.1); Hemoglobin 13.6 g/dL (12.9-16.9); Immature Granulocytes % 0.2 % (0-4); Lymphocytes % 18.7 %; Mean Corpuscular HGB Conc 32.8 g/dL (31.6-35.5); Mean Corpuscular Hemoglobin 33.3 pg (28.0-33.3); Mean Corpuscular Volume 101.5 fL (83.0-100.0); Mean Platelet Volume 10.1 fL (9.4-12.4); Monocytes # 0.7 K/mcL (0.0-1.3); Monocytes % 12.6 %; Neutrophils # 3.5 K/mcL (1.6-8.9); Platelet Count 130 K/mcL (140-400); Red Blood Count 4.09 M/mcL (4.19-5.50); Red Cell Distribution Width 15.7 % (11.5-14.5); Segmented Neutrophils % 64.1 %; White Blood Count 5.4 K/mcL (4.3-11.1)
[2021-08-19 05:57] LABS: BUN/Creatinine Ratio 30 (6-26); Blood Urea Nitrogen 21 mg/dL (6-20); Calcium 8.7 mg/dL (8.6-10.3); Carbon Dioxide 19 mEq/L (23-29); Chloride 106 mEq/L (98-107); Glucose 70 mg/dL (70-105); Osmolality,Calculated 281 (280-300); Phosphorous 3.1 mg/dL (2.7-4.5); Sodium 135 mEq/L (136-145); eGFR For African Americans > 60 (> 60); eGFR For Non-African Americans > 60 (> 60)
[2021-08-19] MEDS: 0.9 % Sodium Chloride 1,000 ML IVC SCH ×2 (06:54→19:07)
[2021-08-19] MEDS: *HR* Heparin 5,000 UNIT/ML VIAL SQ SCH ×2 (06:59→16:48)
[2021-08-19] MEDS: Aspirin 81 MG TAB.CHEW PO SCH (08:05)
[2021-08-19] MEDS: Folic Acid 1 MG TABLET PO SCH (08:05)
[2021-08-19] MEDS: Metoprolol XL (24 HR) Succ 50 MG TAB.ER.24H PO SCH (08:05)
[2021-08-19] MEDS: cefTRIAXone 1,000 MG in Water for inj. (sterile) 10 ML IVP SCH (08:05)
[2021-08-19] MEDS: Thiamine (B-1) 100 MG in 0.9 % Sodium Chloride 50 ML IVPB SCH (08:08)
[2021-08-19 17:35] LABS: Amphetamine Screen,Urine Positive ng/mL (Cutoff=1000); Barbiturate Screen,Urine Negative ng/mL (Cutoff=200); Benzodiazepines Screen,Urine Positive ng/mL (Cutoff=200); Cannabinoid Screen,Urine Negative ng/mL (Cutoff = 50); Cocaine Screen,Urine Negative ng/mL (Cutoff= 300); Opiate Screen,Urine Negative ng/mL (Cutoff=300); Phencyclidine Screen,Urine Negative ng/mL (Cutoff=25)
[2021-08-19] MEDS: diazePAM 10 MG/2 ML SYRINGE IVP PRN (22:49)
[2021-08-20] MEDS: 0.9 % Sodium Chloride 1,000 ML IVC SCH ×2 (01:16→16:40)
[2021-08-20 03:29] LABS: Basophils # 0.1 K/mcL (0.0-0.2); Basophils % 1.2 %; Eosinophils # 0.2 K/mcL (0.0-0.6); Eosinophils % 4.5 %; Hematocrit 39.7 % (37.5-50.1); Hemoglobin 12.9 g/dL (12.9-16.9); Immature Granulocytes % 0.5 % (0-4); Lymphocytes # 0.9 K/mcL (0.6-4.6); Lymphocytes % 20.2 %; Mean Corpuscular HGB Conc 32.5 g/dL (31.6-35.5); Mean Corpuscular Hemoglobin 32.7 pg (28.0-33.3); Mean Corpuscular Volume 100.5 fL (83.0-100.0); Mean Platelet Volume 9.9 fL (9.4-12.4); Monocytes # 0.6 K/mcL (0.0-1.3); Monocytes % 12.9 %; Neutrophils # 2.6 K/mcL (1.6-8.9); Platelet Count 129 K/mcL (140-400); Red Blood Count 3.95 M/mcL (4.19-5.50); Red Cell Distribution Width 15.4 % (11.5-14.5); Segmented Neutrophils % 60.7 %; White Blood Count 4.3 K/mcL (4.3-11.1)
[2021-08-20 03:51] LABS: BUN/Creatinine Ratio 20 (6-26); Blood Urea Nitrogen 16 mg/dL (6-20); Calcium 8.9 mg/dL (8.6-10.3); Carbon Dioxide 25 mEq/L (23-29); Chloride 105 mEq/L (98-107); Glucose 119 mg/dL (70-105); Magnesium 1.7 mg/dL (1.6-2.6); Osmolality,Calculated 286 (280-300); Phosphorous 3.4 mg/dL (2.7-4.5); Potassium 3.6 mEq/L (3.5-5.1); Sodium 137 mEq/L (136-145); eGFR For African Americans > 60 (> 60); eGFR For Non-African Americans > 60 (> 60)
[2021-08-20] MEDS: *HR* Heparin 5,000 UNIT/ML VIAL SQ SCH ×2 (05:35→16:45)
[2021-08-20] MEDS: Levalbuterol Neb 1.25 MG/3 ML IH SCH ×4 (07:58→22:28)
[2021-08-20] MEDS: cefTRIAXone 1,000 MG in Water for inj. (sterile) 10 ML IVP SCH (08:25)
[2021-08-20] MEDS: Metoprolol XL (24 HR) Succ 50 MG TAB.ER.24H PO SCH (08:25)
[2021-08-20] MEDS: Aspirin 81 MG TAB.CHEW PO SCH (08:25)
[2021-08-20] MEDS: Thiamine (B-1) 100 MG TABLET PO SCH (08:25)
[2021-08-20] MEDS: Folic Acid 1 MG TABLET PO SCH (08:25)
[2021-08-20] MEDS: diazePAM 10 MG/2 ML SYRINGE IVP PRN (15:17)
[2021-08-21] MEDS ORDERED: Ondansetron 4 MG/2 ML VIAL IVP ONE (03:30)
[2021-08-21] MEDS: *HR* Heparin 5,000 UNIT/ML VIAL SQ SCH (03:37)
[2021-08-21] MEDS: diazePAM 10 MG/2 ML SYRINGE IVP PRN (03:44)
[2021-08-21] MEDS: Levalbuterol Neb 1.25 MG/3 ML IH SCH ×2 (04:26→09:42)
[2021-08-21 06:18] LABS: Basophils % 0.8 %; Eosinophils # 0.2 K/mcL (0.0-0.6); Eosinophils % 3.3 %; Hematocrit 38.1 % (37.5-50.1); Hemoglobin 12.9 g/dL (12.9-16.9); Immature Granulocytes % 0.2 % (0-4); Lymphocytes % 18.7 %; Mean Corpuscular HGB Conc 33.9 g/dL (31.6-35.5); Mean Corpuscular Hemoglobin 33.7 pg (28.0-33.3); Mean Corpuscular Volume 99.5 fL (83.0-100.0); Mean Platelet Volume 10.4 fL (9.4-12.4); Monocytes # 0.9 K/mcL (0.0-1.3); Monocytes % 17.1 %; Neutrophils # 3.1 K/mcL (1.6-8.9); Platelet Count 131 K/mcL (140-400); Red Blood Count 3.83 M/mcL (4.19-5.50); Red Cell Distribution Width 15.1 % (11.5-14.5); Segmented Neutrophils % 59.9 %; White Blood Count 5.1 K/mcL (4.3-11.1)
[2021-08-21 06:45] LABS: BUN/Creatinine Ratio 14 (6-26); Blood Urea Nitrogen 12 mg/dL (6-20); Calcium 9.1 mg/dL (8.6-10.3); Carbon Dioxide 22 mEq/L (23-29); Chloride 106 mEq/L (98-107); Glucose 105 mg/dL (70-105); Magnesium 1.6 mg/dL (1.6-2.6); Osmolality,Calculated 282 (280-300); Phosphorous 4.4 mg/dL (2.7-4.5); Potassium 3.5 mEq/L (3.5-5.1); Sodium 136 mEq/L (136-145); eGFR For African Americans > 60 (> 60); eGFR For Non-African Americans > 60 (> 60)
[2021-08-21 08:15] VITALS: BP 140/89; PULSE 77; TEMP 100
[2021-08-21] MEDS: cefTRIAXone 1,000 MG in Water for inj. (sterile) 10 ML IVP SCH (08:27)
[2021-08-21] MEDS: Folic Acid 1 MG TABLET PO SCH (08:28)
[2021-08-21] MEDS: Thiamine (B-1) 100 MG TABLET PO SCH (08:28)
[2021-08-21] MEDS: Metoprolol XL (24 HR) Succ 50 MG TAB.ER.24H PO SCH (08:29)
[2021-08-21] MEDS: Aspirin 81 MG TAB.CHEW PO SCH (08:29)
[2021-08-21 09:45] VITALS: O2SAT 97
== END 2021-08-21 11:35 | disposition home or self-care (01) | DRG 775 ==
LOC: EMEROOARM 02:07 → 3BNU 02:07
PROVIDERS: ADMIT Student in an Organized Health Care Education/Training Program; ATTEND Student in an Organized Health Care Education/Training Program

== ENCOUNTER 2021-12-18 21:33 | Observation (INO) ==
[2021-12-19] MEDS ORDERED: Ondansetron 4 MG/2 ML VIAL IVP PRN (07:42)
[2021-12-19] MEDS ORDERED: Naloxone 0.4 MG/ML INJ IVP PRN (07:42)
[2021-12-19] MEDS ORDERED: Perflutren Lipid Microsphere 1.3 ML in 0.9 % Sodium Chloride 8.7 ML IVP PRN (07:57)
[2021-12-19] MEDS: Aspirin 81 MG TAB.CHEW PO SCH (08:03)
[2021-12-19] MEDS: Morphine Sulfate 2 MG/ML SYRINGE IVP PRN ×3 (08:06→20:28)
[2021-12-19] MEDS ORDERED: Ranolazine 500 MG TAB.ER.12H PO SCH (09:00)
[2021-12-19] MEDS ORDERED: Isosorbide MONOnitrate (24 HR) 30 MG TAB.ER.24H PO SCH (09:00)
[2021-12-19] MEDS ORDERED: Sacubitril/Valsartan 49/51 MG 1 TABLET PO SCH (09:00)
[2021-12-19] MEDS ORDERED: Morphine Sulfate 2 MG/ML SYRINGE IVP ONE (09:39)
[2021-12-19 10:11] LABS: Basophils % 0.8 %; Eosinophils # 0.1 K/mcL (0.0-0.6); Eosinophils % 1.2 %; Hemoglobin 12.5 g/dL (12.9-16.9); Immature Granulocytes % 0.2 % (0-4); Lymphocytes # 1.1 K/mcL (0.6-4.6); Lymphocytes % 21.9 %; Mean Corpuscular HGB Conc 31.3 g/dL (31.6-35.5); Mean Corpuscular Hemoglobin 27.7 pg (28.0-33.3); Mean Corpuscular Volume 88.5 fL (83.0-100.0); Mean Platelet Volume 9.6 fL (9.4-12.4); Monocytes # 0.5 K/mcL (0.0-1.3); Monocytes % 9.8 %; Neutrophils # 3.4 K/mcL (1.6-8.9); Platelet Count 256 K/mcL (140-400); Red Blood Count 4.52 M/mcL (4.19-5.50); Red Cell Distribution Width 16.2 % (11.5-14.5); Segmented Neutrophils % 66.1 %; White Blood Count 5.1 K/mcL (4.3-11.1)
[2021-12-19 10:31] LABS: BUN/Creatinine Ratio 9 (6-26); Blood Urea Nitrogen 6 mg/dL (6-20); Calcium 9.1 mg/dL (8.6-10.3); Carbon Dioxide 24 mEq/L (23-29); Chloride 105 mEq/L (98-107); Glucose 89 mg/dL (70-105); Magnesium 1.6 mg/dL (1.6-2.6); Osmolality,Calculated 285 (280-300); Potassium 3.6 mEq/L (3.5-5.1); Sodium 139 mEq/L (136-145); eGFR For African Americans > 60 (> 60); eGFR For Non-African Americans > 60 (> 60)
[2021-12-19] MEDS: *HR* Labetalol 20 MG/4 ML SYRINGE IVP PRN ×2 (16:23→23:53)
[2021-12-19] MEDS: *HR* Heparin 5,000 UNIT/ML VIAL SQ SCH (16:55)
[2021-12-20] MEDS: Morphine Sulfate 2 MG/ML SYRINGE IVP PRN ×5 (02:30→23:03)
[2021-12-20 03:08] LABS: Basophils % 0.6 %; Eosinophils # 0.1 K/mcL (0.0-0.6); Eosinophils % 2.5 %; Hematocrit 37.8 % (37.5-50.1); Hemoglobin 12.4 g/dL (12.9-16.9); Immature Granulocytes % 0.2 % (0-4); Lymphocytes # 1.2 K/mcL (0.6-4.6); Mean Corpuscular HGB Conc 32.8 g/dL (31.6-35.5); Mean Corpuscular Hemoglobin 28.6 pg (28.0-33.3); Mean Corpuscular Volume 87.3 fL (83.0-100.0); Mean Platelet Volume 9.9 fL (9.4-12.4); Monocytes # 0.6 K/mcL (0.0-1.3); Monocytes % 10.8 %; Neutrophils # 3.4 K/mcL (1.6-8.9); Platelet Count 258 K/mcL (140-400); Red Blood Count 4.33 M/mcL (4.19-5.50); Red Cell Distribution Width 16.1 % (11.5-14.5); Segmented Neutrophils % 63.9 %; White Blood Count 5.3 K/mcL (4.3-11.1)
[2021-12-20 03:29] LABS: BUN/Creatinine Ratio 12 (6-26); Blood Urea Nitrogen 8 mg/dL (6-20); Calcium 9.4 mg/dL (8.6-10.3); Carbon Dioxide 26 mEq/L (23-29); Chloride 103 mEq/L (98-107); Glucose 96 mg/dL (70-105); Magnesium 1.7 mg/dL (1.6-2.6); Osmolality,Calculated 284 (280-300); Phosphorous 4.3 mg/dL (2.7-4.5); Potassium 3.4 mEq/L (3.5-5.1); Sodium 138 mEq/L (136-145); eGFR For African Americans > 60 (> 60); eGFR For Non-African Americans > 60 (> 60)
[2021-12-20] MEDS: *HR* Heparin 5,000 UNIT/ML VIAL SQ SCH ×2 (05:24→15:24)
[2021-12-20] MEDS: Aspirin 81 MG TAB.CHEW PO SCH (07:35)
[2021-12-20] MEDS ORDERED: Regadenoson 0.4 MG/5 ML SYRINGE IVP ONE (10:30)
[2021-12-21] MEDS: Morphine Sulfate 2 MG/ML SYRINGE IVP PRN ×4 (03:25→20:46)
[2021-12-21] MEDS: *HR* Heparin 5,000 UNIT/ML VIAL SQ SCH ×2 (05:13→15:33)
[2021-12-21] MEDS: Aspirin 81 MG TAB.CHEW PO SCH (09:42)
[2021-12-21] MEDS ORDERED: Nitroglycerin 0.4 MG TAB.SUBL SL PRN (10:41)
[2021-12-21] MEDS ORDERED: Albuterol 2.5 MG/3 ML NEBULIZER IH PRN (10:41)
[2021-12-21] MEDS ORDERED: Heparin 1,000 UNITS/500 mL 500 ML ONE (12:36)
[2021-12-21] MEDS ORDERED: *HR* Heparin 10,000 UNIT/10 ML VIAL ONE (12:36)
[2021-12-21] MEDS ORDERED: *HR* FentaNYL (PF) 100 MCG/2 ML VIAL ONE (12:36)
[2021-12-21] MEDS ORDERED: 0.9 % Sodium Chloride 2,000 ML ONE (12:36)
[2021-12-21] MEDS ORDERED: *HR* Midazolam HCl 2 MG/2 ML VIAL ONE (12:36)
[2021-12-21] MEDS ORDERED: Nitroglycerin 1,000 MCG/5 ML VIAL IV ONE (12:37)
[2021-12-21] MEDS ORDERED: ISOVUE-370 200 ML INFUS..BTL ONE (12:37)
[2021-12-21] MEDS: Isosorbide MONOnitrate (24 HR) 60 MG TAB.ER.24H PO SCH (14:18)
[2021-12-21] MEDS: Ranolazine 500 MG TAB.ER.12H PO SCH ×2 (14:18→20:45)
[2021-12-21] MEDS: Gabapentin 300 MG CAPSULE PO SCH ×2 (15:33→20:44)
[2021-12-21] MEDS ORDERED: Ringers Solution, Lactated 500 ML IVC ONE ×2 (15:39→16:54)
[2021-12-21] MEDS ORDERED: Ringers Solution, Lactated 1,000 ML ONE (15:40)
[2021-12-21] MEDS: Budesonide/Formoterol 160/4.5 1 PUFF INH IH SCH (20:13)
[2021-12-21] MEDS ORDERED: *HR* Amiodarone 200 MG TABLET PO SCH (21:00)
[2021-12-22] MEDS ORDERED: Albumin 25% 25gram/100mL 25 GM/100 ML IV.SOLN IVPB ONE (00:23)
[2021-12-22] MEDS: Morphine Sulfate 2 MG/ML SYRINGE IVP PRN ×2 (02:52→09:44)
[2021-12-22] MEDS ORDERED: Acetaminophen 325 MG TABLET PO ONE (03:10)
[2021-12-22] MEDS: *HR* Heparin 5,000 UNIT/ML VIAL SQ SCH ×2 (05:19→16:27)
[2021-12-22] MEDS: Budesonide/Formoterol 160/4.5 1 PUFF INH IH SCH (07:49)
[2021-12-22] MEDS: Gabapentin 300 MG CAPSULE PO SCH ×2 (08:43→16:24)
[2021-12-22] MEDS: Isosorbide MONOnitrate (24 HR) 60 MG TAB.ER.24H PO SCH (08:49)
[2021-12-22] MEDS: Aspirin 81 MG TAB.CHEW PO SCH (08:49)
[2021-12-22] MEDS ORDERED: Furosemide 40 MG TABLET PO SCH (09:00)
[2021-12-22] MEDS ORDERED: lisinopriL 5 MG TABLET PO SCH (09:00)
[2021-12-22] MEDS ORDERED: Metoprolol XL (24 HR) Succ 25 MG TAB.ER.24H PO SCH ×2 (09:00)
[2021-12-22 10:41] VITALS: BP 95/53; PULSE 81; TEMP 98.1; O2SAT 92
== END 2021-12-22 18:39 | disposition home or self-care (01) ==
LOC: 3BNU
PROVIDERS: ADMIT Internal Medicine; ATTEND Internal Medicine

== ENCOUNTER 2022-01-06 17:07 | Inpatient (IN) ==
[2022-01-06] MEDS ORDERED: Morphine Sulfate 2 MG/ML SYRINGE IVP PRN (17:44)
[2022-01-06 17:55] LABS: Basophils # 0.1 K/mcL (0.0-0.2); Basophils % 0.8 %; Eosinophils # 0.1 K/mcL (0.0-0.6); Hematocrit 38.8 % (37.5-50.1); Immature Granulocytes % 0.3 % (0-4); Lymphocytes % 16.8 %; Mean Corpuscular HGB Conc 30.9 g/dL (31.6-35.5); Mean Corpuscular Hemoglobin 27.5 pg (28.0-33.3); Mean Platelet Volume 9.1 fL (9.4-12.4); Monocytes # 0.8 K/mcL (0.0-1.3); Neutrophils # 4.1 K/mcL (1.6-8.9); Platelet Count 306 K/mcL (140-400); Red Blood Count 4.36 M/mcL (4.19-5.50); Segmented Neutrophils % 68.1 %; White Blood Count 6.1 K/mcL (4.3-11.1)
[2022-01-06 18:13] LABS: BUN/Creatinine Ratio 13 (6-26); Blood Urea Nitrogen 10 mg/dL (6-20); Calcium 9.2 mg/dL (8.6-10.3); Carbon Dioxide 26 mEq/L (23-29); Chloride 102 mEq/L (98-107); Glucose 116 mg/dL (70-105); Osmolality,Calculated 282 (280-300); Potassium 3.8 mEq/L (3.5-5.1); Sodium 136 mEq/L (136-145); eGFR For African Americans > 60 (> 60); eGFR For Non-African Americans > 60 (> 60)
[2022-01-06 18:15] LABS: INR 1.1; Prothrombin Time 12.5 Seconds (9.4-12.1)
[2022-01-06 18:17] LABS: Activated Partial Thrombo Time 33.6 Seconds (26.0-36.0)
[2022-01-06 18:32] LABS: Troponin I < 0.03 ng/mL (< 0.04)
[2022-01-06] MEDS ORDERED: Furosemide 40 MG/4 ML VIAL IVP ONE (18:44)
[2022-01-06] MEDS ORDERED: Morphine Sulfate 2 MG/ML SYRINGE IVP ONE (19:05)
[2022-01-06] MEDS ORDERED: Perflutren Lipid Microsphere 1.3 ML in 0.9 % Sodium Chloride 8.7 ML IVP PRN (20:46)
[2022-01-06] MEDS ORDERED: Acetaminophen 325 MG TABLET PO PRN (21:08)
[2022-01-06] MEDS ORDERED: Naloxone 0.4 MG/ML INJ IVP PRN (21:08)
[2022-01-06] MEDS ORDERED: *HR* Heparin 5,000 UNIT/ML VIAL IVP PRN ×2 (22:44)
[2022-01-06] MEDS ORDERED: *HR* Heparin 5,000 UNIT/ML VIAL IVP ONE (22:44)
[2022-01-06] MEDS ORDERED: Heparin 25,000UNIT/250ML 1/2NS 25,000 UNIT/250 ML IV.SOLN IVC SCH (22:45)
[2022-01-06] MEDS ORDERED: Nitroglycerin 0.4 MG TAB.SUBL SL PRN (23:04)
[2022-01-07 00:46] LABS: Hematocrit 38.5 % (37.5-50.1); Mean Corpuscular HGB Conc 31.2 g/dL (31.6-35.5); Mean Corpuscular Hemoglobin 27.5 pg (28.0-33.3); Mean Corpuscular Volume 88.1 fL (83.0-100.0); Mean Platelet Volume 9.1 fL (9.4-12.4); Platelet Count 316 K/mcL (140-400); Red Blood Count 4.37 M/mcL (4.19-5.50); Red Cell Distribution Width 17.2 % (11.5-14.5); White Blood Count 5.5 K/mcL (4.3-11.1)
[2022-01-07 00:54] LABS: INR 1.2; Prothrombin Time 13.1 Seconds (9.4-12.1)
[2022-01-07 00:57] LABS: Activated Partial Thrombo Time 39.1 Seconds (26.0-36.0)
[2022-01-07 01:11] LABS: BUN/Creatinine Ratio 13 (6-26); Blood Urea Nitrogen 10 mg/dL (6-20); Calcium 9.3 mg/dL (8.6-10.3); Carbon Dioxide 27 mEq/L (23-29); Chloride 101 mEq/L (98-107); Chol/HDL Ratio 3.7 (0-4.9); Cholesterol 163 mg/dL (< 200); Glucose 178 mg/dL (70-105); HDL Cholesterol 44 mg/dL (40-59); Iron 19 mcg/dL (65-175); LDL Cholesterol,Calculated 107 mg/dL (< 100); Magnesium 1.9 mg/dL (1.6-2.6); Osmolality,Calculated 287 (280-300); Potassium 3.3 mEq/L (3.5-5.1); Sodium 137 mEq/L (136-145); Triglycerides 62 mg/dL (< 150); eGFR For African Americans > 60 (> 60); eGFR For Non-African Americans > 60 (> 60)
[2022-01-07 01:28] LABS: Ferritin 17 ng/mL (20-250)
[2022-01-07 02:05] LABS: % Iron Saturation 4 % (20-55); Transferrin 311 mg/dL (203-362)
[2022-01-07 02:13] LABS: Folate 13.3 ng/mL (3.0-16.0)
[2022-01-07] MEDS: Morphine Sulfate 2 MG/ML SYRINGE IVP PRN ×5 (03:56→21:27)
[2022-01-07] MEDS ORDERED: Cyanocobalamin (B-12) 1,000 MCG/ML VIAL SQ ONE (07:45)
[2022-01-07] MEDS ORDERED: Iron Sucrose Complex 400 MG in 0.9 % Sodium Chloride 250 ML IVPB ONE (07:46)
[2022-01-07] MEDS: Furosemide 20 MG/2 ML VIAL IVP SCH ×2 (07:56→16:04)
[2022-01-07] MEDS: Aspirin Enteric Coated 81 MG Tablet PO SCH (07:56)
[2022-01-07 10:42] LABS: Estimated Average Glucose 120 mg/dl; Hemoglobin A1C 5.8 %
[2022-01-07] MEDS: Isosorbide MONOnitrate (24 HR) 30 MG TAB.ER.24H PO SCH (12:18)
[2022-01-07] MEDS: Metoprolol XL (24 HR) Succ 25 MG TAB.ER.24H PO SCH (12:19)
[2022-01-07] MEDS: Cyanocobalamin (B-12) 1,000 MCG TABLET PO SCH (16:04)
[2022-01-07] MEDS: *HR* Heparin 5,000 UNIT/ML VIAL SQ SCH (17:09)
[2022-01-07] MEDS: Budesonide/Formoterol 160/4.5 1 PUFF INH IH SCH ×2 (17:31→20:14)
[2022-01-08] MEDS: Morphine Sulfate 2 MG/ML SYRINGE IVP PRN ×4 (03:39→21:17)
[2022-01-08] MEDS: *HR* Heparin 5,000 UNIT/ML VIAL SQ SCH (05:48)
[2022-01-08 06:04] LABS: Hematocrit 37.3 % (37.5-50.1); Hemoglobin 11.6 g/dL (12.9-16.9); Mean Corpuscular HGB Conc 31.1 g/dL (31.6-35.5); Mean Corpuscular Hemoglobin 27.6 pg (28.0-33.3); Mean Corpuscular Volume 88.8 fL (83.0-100.0); Mean Platelet Volume 9.5 fL (9.4-12.4); Platelet Count 298 K/mcL (140-400); Red Cell Distribution Width 17.4 % (11.5-14.5); White Blood Count 5.4 K/mcL (4.3-11.1)
[2022-01-08 06:25] LABS: BUN/Creatinine Ratio 17 (6-26); Blood Urea Nitrogen 18 mg/dL (6-20); Calcium 9.6 mg/dL (8.6-10.3); Carbon Dioxide 26 mEq/L (23-29); Chloride 103 mEq/L (98-107); Glucose 104 mg/dL (70-105); Osmolality,Calculated 292 (280-300); Potassium 4.2 mEq/L (3.5-5.1); Sodium 140 mEq/L (136-145); eGFR For African Americans > 60 (> 60); eGFR For Non-African Americans > 60 (> 60)
[2022-01-08] MEDS: Cyanocobalamin (B-12) 1,000 MCG TABLET PO SCH (07:55)
[2022-01-08] MEDS: Furosemide 20 MG/2 ML VIAL IVP SCH (07:55)
[2022-01-08] MEDS: Isosorbide MONOnitrate (24 HR) 30 MG TAB.ER.24H PO SCH (07:55)
[2022-01-08] MEDS: Aspirin Enteric Coated 81 MG Tablet PO SCH (07:55)
[2022-01-08] MEDS: Metoprolol XL (24 HR) Succ 25 MG TAB.ER.24H PO SCH (07:55)
[2022-01-08] MEDS: Budesonide/Formoterol 160/4.5 1 PUFF INH IH SCH ×2 (08:05→20:28)
[2022-01-08] MEDS ORDERED: Isosorbide MONOnitrate (24 HR) 30 MG TAB.ER.24H PO ONE (10:15)
[2022-01-08] MEDS ORDERED: Ipratropium/Albuterol Neb 3 ML IH PRN (10:25)
[2022-01-08] MEDS ORDERED: Cyanocobalamin (B-12) 1,000 MCG/ML VIAL SQ ONE (10:34)
[2022-01-08] MEDS: Iron Sucrose Complex 250 MG in 0.9 % Sodium Chloride 250 ML IVPB SCH (11:13)
[2022-01-08] MEDS: Ranolazine 500 MG TAB.ER.12H PO SCH ×2 (11:13→21:14)
[2022-01-08 11:59] LABS: INR 1.1; Prothrombin Time 11.8 Seconds (9.4-12.1)
[2022-01-08] MEDS ORDERED: Warfarin perPT PO PRN (18:00)
[2022-01-08] MEDS ORDERED: *HR* Warfarin 2.5 MG TABLET PO ONE (18:00)
[2022-01-09] MEDS: Morphine Sulfate 2 MG/ML SYRINGE IVP PRN ×3 (02:03→21:09)
[2022-01-09 05:56] LABS: Basophils # 0.1 K/mcL (0.0-0.2); Basophils % 0.9 %; Eosinophils # 0.1 K/mcL (0.0-0.6); Hematocrit 35.8 % (37.5-50.1); Hemoglobin 11.3 g/dL (12.9-16.9); Immature Granulocytes % 0.2 % (0-4); Lymphocytes # 1.1 K/mcL (0.6-4.6); Lymphocytes % 20.6 %; Mean Corpuscular HGB Conc 31.6 g/dL (31.6-35.5); Mean Corpuscular Hemoglobin 27.9 pg (28.0-33.3); Mean Corpuscular Volume 88.4 fL (83.0-100.0); Mean Platelet Volume 9.9 fL (9.4-12.4); Monocytes # 0.8 K/mcL (0.0-1.3); Monocytes % 14.2 %; Neutrophils # 3.4 K/mcL (1.6-8.9); Platelet Count 293 K/mcL (140-400); Red Blood Count 4.05 M/mcL (4.19-5.50); Red Cell Distribution Width 16.9 % (11.5-14.5); Segmented Neutrophils % 62.1 %; White Blood Count 5.5 K/mcL (4.3-11.1)
[2022-01-09 06:02] LABS: INR 1.1; Prothrombin Time 12.7 Seconds (9.4-12.1)
[2022-01-09 06:11] LABS: BUN/Creatinine Ratio 27 (6-26); Blood Urea Nitrogen 22 mg/dL (6-20); Calcium 9.3 mg/dL (8.6-10.3); Carbon Dioxide 26 mEq/L (23-29); Chloride 104 mEq/L (98-107); Glucose 106 mg/dL (70-105); Osmolality,Calculated 290 (280-300); Potassium 3.7 mEq/L (3.5-5.1); Sodium 138 mEq/L (136-145); eGFR For African Americans > 60 (> 60); eGFR For Non-African Americans > 60 (> 60)
[2022-01-09] MEDS: Budesonide/Formoterol 160/4.5 1 PUFF INH IH SCH ×2 (08:12→20:03)
[2022-01-09] MEDS ORDERED: lisinopriL 5 MG TABLET PO SCH (09:00)
[2022-01-09] MEDS: Ranolazine 500 MG TAB.ER.12H PO SCH ×2 (09:07→19:51)
[2022-01-09] MEDS: Aspirin Enteric Coated 81 MG Tablet PO SCH (09:08)
[2022-01-09] MEDS: Furosemide 40 MG TABLET PO SCH (09:08)
[2022-01-09] MEDS: Metoprolol XL (24 HR) Succ 25 MG TAB.ER.24H PO SCH (09:08)
[2022-01-09] MEDS: Cyanocobalamin (B-12) 1,000 MCG TABLET PO SCH (09:08)
[2022-01-09] MEDS: Isosorbide MONOnitrate (24 HR) 30 MG TAB.ER.24H PO SCH ×2 (09:08→11:25)
[2022-01-09] MEDS: Iron Sucrose Complex 250 MG in 0.9 % Sodium Chloride 250 ML IVPB SCH (09:14)
[2022-01-09] MEDS ORDERED: *HR* Warfarin 5 MG TABLET PO ONE (18:00)
[2022-01-10 03:28] LABS: Basophils # 0.1 K/mcL (0.0-0.2); Basophils % 0.9 %; Eosinophils # 0.1 K/mcL (0.0-0.6); Eosinophils % 2.2 %; Hematocrit 35.5 % (37.5-50.1); Hemoglobin 11.3 g/dL (12.9-16.9); Immature Granulocytes % 0.3 % (0-4); Lymphocytes # 1.2 K/mcL (0.6-4.6); Lymphocytes % 20.8 %; Mean Corpuscular HGB Conc 31.8 g/dL (31.6-35.5); Mean Corpuscular Hemoglobin 28.1 pg (28.0-33.3); Mean Corpuscular Volume 88.3 fL (83.0-100.0); Mean Platelet Volume 9.6 fL (9.4-12.4); Monocytes # 0.7 K/mcL (0.0-1.3); Monocytes % 12.7 %; Neutrophils # 3.7 K/mcL (1.6-8.9); Platelet Count 297 K/mcL (140-400); Red Blood Count 4.02 M/mcL (4.19-5.50); Red Cell Distribution Width 16.7 % (11.5-14.5); Segmented Neutrophils % 63.1 %; White Blood Count 5.8 K/mcL (4.3-11.1)
[2022-01-10 03:29] LABS: BUN/Creatinine Ratio 23 (6-26); Blood Urea Nitrogen 19 mg/dL (6-20); Carbon Dioxide 21 mEq/L (23-29); Chloride 106 mEq/L (98-107); Glucose 95 mg/dL (70-105); Magnesium 1.9 mg/dL (1.6-2.6); Osmolality,Calculated 288 (280-300); Potassium 3.6 mEq/L (3.5-5.1); Sodium 138 mEq/L (136-145); eGFR For African Americans > 60 (> 60); eGFR For Non-African Americans > 60 (> 60)
[2022-01-10 04:27] LABS: INR 1.1; Prothrombin Time 12.3 Seconds (9.4-12.1)
[2022-01-10 07:32] VITALS: TEMP 98.3
[2022-01-10] MEDS: Furosemide 40 MG TABLET PO SCH (07:36)
[2022-01-10] MEDS: Ranolazine 500 MG TAB.ER.12H PO SCH (07:36)
[2022-01-10] MEDS: Cyanocobalamin (B-12) 1,000 MCG TABLET PO SCH (07:36)
[2022-01-10] MEDS: Aspirin Enteric Coated 81 MG Tablet PO SCH (07:36)
[2022-01-10] MEDS: Metoprolol XL (24 HR) Succ 25 MG TAB.ER.24H PO SCH (07:36)
[2022-01-10] MEDS: Morphine Sulfate 2 MG/ML SYRINGE IVP PRN ×2 (07:38→11:43)
[2022-01-10] MEDS: Budesonide/Formoterol 160/4.5 1 PUFF INH IH SCH (08:23)
[2022-01-10] MEDS ORDERED: Isosorbide MONOnitrate (24 HR) 30 MG TAB.ER.24H PO SCH (09:00)
[2022-01-10 11:22] VITALS: O2SAT 95
[2022-01-10 11:23] VITALS: BP 137/80; PULSE 88
[2022-01-10] MEDS ORDERED: *HR* Warfarin 5 MG TABLET PO ONE (18:00)
== END 2022-01-10 14:15 | disposition home or self-care (01) | DRG 198 ==
LOC: EMEROOARM 17:07 → 3ANU 17:07 → SUATTDRO 19:35 → 3ANU 20:28
PROVIDERS: ADMIT Internal Medicine; ATTEND Pharmacist

== ENCOUNTER 2022-01-25 22:29 | Observation (INO) ==
[2022-01-25 23:23] LABS: Basophils # 0.1 K/mcL (0.0-0.2); Basophils % 1.3 %; Eosinophils # 0.2 K/mcL (0.0-0.6); Eosinophils % 3.1 %; Hematocrit 39.9 % (37.5-50.1); Hemoglobin 12.9 g/dL (12.9-16.9); Immature Granulocytes % 0.5 % (0-4); Lymphocytes # 1.9 K/mcL (0.6-4.6); Lymphocytes % 30.1 %; Mean Corpuscular HGB Conc 32.3 g/dL (31.6-35.5); Mean Corpuscular Hemoglobin 29.3 pg (28.0-33.3); Mean Corpuscular Volume 90.7 fL (83.0-100.0); Mean Platelet Volume 9.5 fL (9.4-12.4); Monocytes # 0.7 K/mcL (0.0-1.3); Monocytes % 11.6 %; Neutrophils # 3.3 K/mcL (1.6-8.9); Platelet Count 255 K/mcL (140-400); Red Cell Distribution Width 20.6 % (11.5-14.5); Segmented Neutrophils % 53.4 %; White Blood Count 6.1 K/mcL (4.3-11.1)
[2022-01-25 23:36] LABS: BUN/Creatinine Ratio 14 (6-26); Blood Urea Nitrogen 10 mg/dL (6-20); Calcium 8.9 mg/dL (8.6-10.3); Carbon Dioxide 20 mEq/L (23-29); Chloride 107 mEq/L (98-107); Glucose 112 mg/dL (70-105); Osmolality,Calculated 292 (280-300); Potassium 3.4 mEq/L (3.5-5.1); Sodium 141 mEq/L (136-145); eGFR For African Americans > 60 (> 60); eGFR For Non-African Americans > 60 (> 60)
[2022-01-25 23:38] LABS: Troponin I < 0.03 ng/mL (< 0.04)
[2022-01-25 23:40] LABS: Prothrombin Time 10.8 Seconds (9.4-12.1)
[2022-01-25 23:43] LABS: Activated Partial Thrombo Time 29.6 Seconds (26.0-36.0)
[2022-01-25] MEDS ORDERED: *HR* FentaNYL (PF) 100 MCG/2 ML VIAL IVP STA (23:52)
[2022-01-26] MEDS ORDERED: Isovue-370 500 ML BOTTLE IVP ONE (00:44)
[2022-01-26] MEDS ORDERED: Morphine Sulfate 2 MG/ML SYRINGE IVP ONE (04:11)
[2022-01-26] MEDS ORDERED: Ipratropium/Albuterol Neb 3 ML IH ONE ×2 (04:33→04:36)
[2022-01-26] MEDS ORDERED: Furosemide 40 MG/4 ML VIAL IVP ONE (04:34)
[2022-01-26] MEDS ORDERED: Ipratropium/Albuterol Neb 3 ML ONE (04:36)
[2022-01-26] MEDS ORDERED: *HR* Promethazine 25 MG/ML VIAL IM PRN (04:54)
[2022-01-26] MEDS ORDERED: Melatonin 3 MG TABLET PO PRN (04:54)
[2022-01-26] MEDS ORDERED: *HR* HYDROcodone/Acet 5/325 mg TABLET PO PRN (04:54)
[2022-01-26] MEDS ORDERED: Naloxone 0.4 MG/ML INJ IVP PRN (04:54)
[2022-01-26] MEDS ORDERED: Ondansetron 4 MG/2 ML VIAL IVP PRN (04:54)
[2022-01-26] MEDS ORDERED: Acetaminophen 325 MG TABLET PO PRN (04:54)
[2022-01-26] MEDS ORDERED: Ipratropium/Albuterol Neb 3 ML IH PRN (05:00)
[2022-01-26] MEDS ORDERED: methylPREDNISolone 125 MG/2 ML VIAL IVP ONE (05:00)
[2022-01-26] MEDS: Ipratropium/Albuterol Neb 3 ML IH SCH ×3 (07:48→15:36)
[2022-01-26] MEDS ORDERED: Furosemide 40 MG/4 ML VIAL IVP SCH (08:00)
[2022-01-26] MEDS ORDERED: levoFLOXacin 750 MG/150 ML 750 MG/150 ML BAG IVPB SCH (09:00)
[2022-01-26] MEDS ORDERED: Aspirin 325 MG TABLET PO SCH (09:00)
[2022-01-26] MEDS ORDERED: Ranolazine 500 MG TAB.ER.12H PO SCH (09:00)
[2022-01-26] MEDS ORDERED: Isosorbide MONOnitrate (24 HR) 30 MG TAB.ER.24H PO SCH (09:00)
[2022-01-26] MEDS ORDERED: Metoprolol XL (24 HR) Succ 25 MG TAB.ER.24H PO SCH (09:00)
[2022-01-26] MEDS ORDERED: Budesonide/Formoterol 160/4.5 1 PUFF INH IH SCH (09:00)
[2022-01-26 11:36] VITALS: BP 118/85; PULSE 91; TEMP 98.1; O2SAT 95
[2022-01-26] MEDS ORDERED: MethylPREDNISolone 40 MG/ML VIAL IVP SCH (13:00)
== END 2022-01-26 15:40 | disposition home or self-care (01) ==
LOC: EMEROOARM 22:29 → 3BNU 22:29
PROVIDERS: ADMIT Family Medicine; ATTEND Family Medicine

== ENCOUNTER 2022-02-19 04:45 | Observation (INO) ==
[2022-02-19] MEDS ORDERED: Ondansetron 4 MG/2 ML VIAL IVP ONE (06:55)
[2022-02-19] MEDS ORDERED: Morphine Sulfate 2 MG/ML SYRINGE IVP ONE (06:55)
[2022-02-19 07:00] LABS: Basophils % 0.6 %; Eosinophils # 0.2 K/mcL (0.0-0.6); Eosinophils % 3.3 %; Hematocrit 39.7 % (37.5-50.1); Hemoglobin 12.9 g/dL (12.9-16.9); Immature Granulocytes % 0.3 % (0-4); Lymphocytes # 1.4 K/mcL (0.6-4.6); Lymphocytes % 21.4 %; Mean Corpuscular HGB Conc 32.5 g/dL (31.6-35.5); Mean Corpuscular Hemoglobin 30.9 pg (28.0-33.3); Mean Corpuscular Volume 95.2 fL (83.0-100.0); Mean Platelet Volume 9.6 fL (9.4-12.4); Monocytes # 0.9 K/mcL (0.0-1.3); Monocytes % 13.9 %; Neutrophils # 3.9 K/mcL (1.6-8.9); Platelet Count 267 K/mcL (140-400); Red Blood Count 4.17 M/mcL (4.19-5.50); Red Cell Distribution Width 20.1 % (11.5-14.5); Segmented Neutrophils % 60.5 %; White Blood Count 6.4 K/mcL (4.3-11.1)
[2022-02-19 07:08] LABS: BUN/Creatinine Ratio 17 (6-26); Blood Urea Nitrogen 16 mg/dL (6-20); Calcium 9.2 mg/dL (8.6-10.3); Carbon Dioxide 32 mEq/L (23-29); Chloride 105 mEq/L (98-107); Glucose 114 mg/dL (70-105); Osmolality,Calculated 296 (280-300); Potassium 3.7 mEq/L (3.5-5.1); Sodium 142 mEq/L (136-145); eGFR For African Americans > 60 (> 60); eGFR For Non-African Americans > 60 (> 60)
[2022-02-19 07:09] LABS: Troponin I < 0.03 ng/mL (< 0.04)
[2022-02-19] MEDS ORDERED: Aspirin 325 MG TABLET PO ONE (07:36)
[2022-02-19] MEDS ORDERED: Ondansetron 4 MG/2 ML VIAL IVP PRN (08:11)
[2022-02-19] MEDS ORDERED: Naloxone 0.4 MG/ML INJ IVP PRN (08:11)
[2022-02-19 10:06] LABS: Phosphorous 4.2 mg/dL (2.7-4.5); Troponin I < 0.03 ng/mL (< 0.04)
[2022-02-19] MEDS ORDERED: Ipratropium/Albuterol Neb 3 ML IH PRN (11:03)
[2022-02-19] MEDS ORDERED: Nitroglycerin 0.4 MG TAB.SUBL SL PRN (11:05)
[2022-02-19] MEDS: Isosorbide MONOnitrate (24 HR) 60 MG TAB.ER.24H PO SCH (11:24)
[2022-02-19] MEDS: Metoprolol XL (24 HR) Succ 25 MG TAB.ER.24H PO SCH (11:24)
[2022-02-19] MEDS: Ranolazine 500 MG TAB.ER.12H PO SCH ×2 (11:24→20:58)
[2022-02-19] MEDS: Acetaminophen 325 MG TABLET PO PRN (11:24)
[2022-02-19] MEDS: Azithromycin 250 MG TABLET PO SCH (11:24)
[2022-02-19] MEDS: Gabapentin 300 MG CAPSULE PO SCH ×2 (14:25→20:58)
[2022-02-19] MEDS: *HR* Heparin 5,000 UNIT/ML VIAL SQ SCH ×2 (14:25→20:59)
[2022-02-19] MEDS: valACYclovir 500 MG TABLET PO SCH ×2 (15:10→20:59)
[2022-02-19] MEDS: MethylPREDNISolone 40 MG/ML VIAL IVP SCH ×2 (15:10→23:39)
[2022-02-19] MEDS ORDERED: Ketorolac 30 MG/ML VIAL IVP ONE (20:11)
[2022-02-19] MEDS: Budesonide/Formoterol 160/4.5 1 PUFF INH IH SCH (23:25)
[2022-02-20] MEDS ORDERED: *HR* HYDROcodone/Acet 5/325 mg TABLET PO ONE (04:22)
[2022-02-20] MEDS: *HR* Heparin 5,000 UNIT/ML VIAL SQ SCH ×3 (05:03→20:02)
[2022-02-20 05:18] LABS: Hematocrit 37.3 % (37.5-50.1); Hemoglobin 12.3 g/dL (12.9-16.9); Mean Corpuscular Hemoglobin 31.2 pg (28.0-33.3); Mean Corpuscular Volume 94.7 fL (83.0-100.0); Mean Platelet Volume 9.8 fL (9.4-12.4); Platelet Count 285 K/mcL (140-400); Red Blood Count 3.94 M/mcL (4.19-5.50); Red Cell Distribution Width 18.7 % (11.5-14.5); White Blood Count 6.7 K/mcL (4.3-11.1)
[2022-02-20 05:38] LABS: BUN/Creatinine Ratio 21 (6-26); Blood Urea Nitrogen 19 mg/dL (6-20); Calcium 8.8 mg/dL (8.6-10.3); Carbon Dioxide 20 mEq/L (23-29); Chloride 106 mEq/L (98-107); Glucose 385 mg/dL (70-105); Osmolality,Calculated 298 (280-300); Potassium 3.8 mEq/L (3.5-5.1); Sodium 135 mEq/L (136-145); eGFR For African Americans > 60 (> 60); eGFR For Non-African Americans > 60 (> 60)
[2022-02-20] MEDS: Budesonide/Formoterol 160/4.5 1 PUFF INH IH SCH ×2 (07:53→20:03)
[2022-02-20] MEDS ORDERED: Dextrose 4 GM Chewable Tablets PO PRN ×2 (08:13)
[2022-02-20] MEDS ORDERED: *HR* Dextrose 50 % in Water (Syg) 50 ML SYRINGE IVP PRN (08:13)
[2022-02-20] MEDS ORDERED: D5% in Water 1,000 ML IVC PRN (08:13)
[2022-02-20] MEDS: valACYclovir 500 MG TABLET PO SCH ×3 (08:35→20:02)
[2022-02-20] MEDS: Ranolazine 500 MG TAB.ER.12H PO SCH ×2 (08:35→20:02)
[2022-02-20] MEDS: Aspirin Enteric Coated 325 MG Tablet PO SCH (08:35)
[2022-02-20] MEDS: Azithromycin 250 MG TABLET PO SCH (08:35)
[2022-02-20] MEDS: Gabapentin 300 MG CAPSULE PO SCH ×3 (08:35→20:02)
[2022-02-20] MEDS: Furosemide 40 MG TABLET PO SCH (08:36)
[2022-02-20] MEDS: MethylPREDNISolone 40 MG/ML VIAL IVP SCH (08:36)
[2022-02-20] MEDS: Isosorbide MONOnitrate (24 HR) 60 MG TAB.ER.24H PO SCH (08:36)
[2022-02-20] MEDS: Metoprolol XL (24 HR) Succ 25 MG TAB.ER.24H PO SCH (08:36)
[2022-02-20] MEDS: Insulin LISPRO 300 UNITS/3 ML VIAL SUBQ SCH ×4 (08:58→16:09)
[2022-02-20 10:24] LABS: Estimated Average Glucose 111 mg/dl; Hemoglobin A1C 5.5 %
[2022-02-20] MEDS: Artificial Tears SOLN 15 ML BOTTLE BOTH EYES SCH ×4 (11:48→20:03)
[2022-02-20] MEDS: Erythromycin OPTH Oint RIGHT EYE SCH ×2 (11:56→20:03)
[2022-02-20 12:55] LABS: Adenovirus Not Detected (Not Detect); Bordetella Pertussis Not Detected (Not Detect); Chlamydophila pneumoniae Not Detected (Not Detect); Coronavirus 229E Not Detected (Not Detect); Coronavirus HKU1 Not Detected (Not Detect); Coronavirus NL63 Not Detected (Not Detect); Coronavirus OC43 Not Detected (Not Detect); Human Metapneumovirus Not Detected (Not Detect); Human Rhinovirus/Enterovirus Not Detected (Not Detect); Influenza A Subtype 2009 H1 Not Detected (Not Detect); Influenza B Not Detected (Not Detect); Mycoplasma pneumoniae Not Detected (Not Detect); Parainfluenza Virus 1 Not Detected (Not Detect); Parainfluenza Virus 2 Not Detected (Not Detect); Parainfluenza Virus 3 Not Detected (Not Detect); Parainfluenza Virus 4 Not Detected (Not Detect); Respiratory Syncytial Virus Not Detected (Not Detect); SARS-CoV-2 Not Detected (Not Detect)
[2022-02-20] MEDS: Ipratropium/Albuterol Neb 3 ML IH SCH ×4 (15:27→23:35)
[2022-02-20] MEDS: *HR* HYDROcodone/Acet 5/325 mg TABLET PO PRN ×2 (16:07→22:15)
[2022-02-20] MEDS ORDERED: MethylPREDNISolone 40 MG/ML VIAL IVP SCH (20:00)
[2022-02-20] MEDS ORDERED: Insulin LISPRO 300 UNITS/3 ML VIAL SUBQ SCH ×2 (21:00)
[2022-02-21] MEDS: Acetaminophen 325 MG TABLET PO PRN ×2 (02:20→10:53)
[2022-02-21] MEDS: Ipratropium/Albuterol Neb 3 ML IH SCH ×3 (03:22→11:24)
[2022-02-21] MEDS: *HR* HYDROcodone/Acet 5/325 mg TABLET PO PRN (04:55)
[2022-02-21] MEDS: *HR* Heparin 5,000 UNIT/ML VIAL SQ SCH (04:55)
[2022-02-21 05:32] LABS: Basophils % 0.1 %; Hematocrit 37.2 % (37.5-50.1); Lymphocytes # 0.8 K/mcL (0.6-4.6); Lymphocytes % 5.1 %; Mean Corpuscular HGB Conc 32.3 g/dL (31.6-35.5); Mean Corpuscular Hemoglobin 30.9 pg (28.0-33.3); Mean Corpuscular Volume 95.9 fL (83.0-100.0); Mean Platelet Volume 10.3 fL (9.4-12.4); Monocytes # 1.1 K/mcL (0.0-1.3); Neutrophils # 14.1 K/mcL (1.6-8.9); Platelet Count 298 K/mcL (140-400); Red Blood Count 3.88 M/mcL (4.19-5.50); Red Cell Distribution Width 19.1 % (11.5-14.5); Segmented Neutrophils % 86.8 %
[2022-02-21 05:39] LABS: BUN/Creatinine Ratio 16 (6-26); Blood Urea Nitrogen 15 mg/dL (6-20); Calcium 8.7 mg/dL (8.6-10.3); Carbon Dioxide 24 mEq/L (23-29); Chloride 105 mEq/L (98-107); Glucose 254 mg/dL (70-105); Magnesium 1.9 mg/dL (1.6-2.6); Osmolality,Calculated 293 (280-300); Sodium 137 mEq/L (136-145); White Blood Count 16.2 K/mcL (4.3-11.1); eGFR For African Americans > 60 (> 60); eGFR For Non-African Americans > 60 (> 60)
[2022-02-21 06:46] VITALS: BP 116/70; PULSE 82; TEMP 97.7
[2022-02-21] MEDS: Budesonide/Formoterol 160/4.5 1 PUFF INH IH SCH (07:38)
[2022-02-21] MEDS: Ranolazine 500 MG TAB.ER.12H PO SCH (07:57)
[2022-02-21] MEDS: Isosorbide MONOnitrate (24 HR) 60 MG TAB.ER.24H PO SCH (07:58)
[2022-02-21] MEDS: Furosemide 40 MG TABLET PO SCH (07:58)
[2022-02-21] MEDS: Metoprolol XL (24 HR) Succ 25 MG TAB.ER.24H PO SCH (07:58)
[2022-02-21] MEDS: Azithromycin 250 MG TABLET PO SCH (07:58)
[2022-02-21] MEDS: Gabapentin 300 MG CAPSULE PO SCH (07:58)
[2022-02-21] MEDS: Aspirin Enteric Coated 325 MG Tablet PO SCH (07:58)
[2022-02-21] MEDS: Erythromycin OPTH Oint RIGHT EYE SCH (08:01)
[2022-02-21] MEDS: Artificial Tears SOLN 15 ML BOTTLE BOTH EYES SCH (08:01)
[2022-02-21] MEDS: Insulin LISPRO 300 UNITS/3 ML VIAL SUBQ SCH (08:02)
[2022-02-21] MEDS ORDERED: predniSONE 20 MG TABLET PO SCH (09:00)
[2022-02-21 09:41] VITALS: O2SAT 95
== END 2022-02-21 13:17 | disposition home or self-care (01) ==
LOC: 3BNU 04:45 → EMEROOARM 04:45 → SUATTDRO 08:24 → 3BNU 09:53
PROVIDERS: ADMIT Student in an Organized Health Care Education/Training Program; ATTEND Internal Medicine

== ENCOUNTER 2022-04-22 21:24 | Observation (INO) ==
[2022-04-22 22:58] LABS: BUN/Creatinine Ratio 14 (6-26); Blood Urea Nitrogen 15 mg/dL (6-20); Calcium 9.5 mg/dL (8.6-10.3); Carbon Dioxide 28 mEq/L (23-29); Chloride 102 mEq/L (98-107); Glucose 123 mg/dL (70-105); Osmolality,Calculated 288 (280-300); Potassium 3.8 mEq/L (3.5-5.1); Sodium 138 mEq/L (136-145); Troponin I < 0.03 ng/mL (< 0.04); eGFR For African Americans > 60 (> 60); eGFR For Non-African Americans > 60 (> 60)
[2022-04-22 23:33] LABS: Basophils # 0.1 K/mcL (0.0-0.2); Basophils % 0.8 %; Eosinophils # 0.3 K/mcL (0.0-0.6); Eosinophils % 3.8 %; Hematocrit 34.5 % (37.5-50.1); Hemoglobin 11.5 g/dL (12.9-16.9); Immature Granulocytes % 0.4 % (0-4); Lymphocytes # 1.8 K/mcL (0.6-4.6); Lymphocytes % 22.9 %; Mean Corpuscular HGB Conc 33.3 g/dL (31.6-35.5); Mean Corpuscular Hemoglobin 31.7 pg (28.0-33.3); Monocytes # 1.1 K/mcL (0.0-1.3); Monocytes % 13.5 %; Neutrophils # 4.6 K/mcL (1.6-8.9); Platelet Count 280 K/mcL (140-400); Red Blood Count 3.63 M/mcL (4.19-5.50); Red Cell Distribution Width 14.8 % (11.5-14.5); Segmented Neutrophils % 58.6 %; White Blood Count 7.9 K/mcL (4.3-11.1)
[2022-04-22 23:41] LABS: INR 1.2
[2022-04-22 23:44] LABS: Activated Partial Thrombo Time 37.9 Seconds (26.0-36.0)
[2022-04-22 23:51] LABS: Platelet Estimate Normal (Normal)
[2022-04-23] MEDS ORDERED: Ondansetron ODT 4 MG TAB.RAPDIS SL PRN (01:31)
[2022-04-23] MEDS ORDERED: Melatonin 3 MG TABLET PO PRN (01:31)
[2022-04-23] MEDS ORDERED: Naloxone 0.4 MG/ML INJ IVP PRN ×2 (01:31→06:56)
[2022-04-23] MEDS ORDERED: Nitroglycerin 0.4 MG TAB.SUBL SL PRN (01:36)
[2022-04-23] MEDS ORDERED: Ipratropium/Albuterol Neb 3 ML IH PRN (02:39)
[2022-04-23 05:24] LABS: Hematocrit 35.4 % (37.5-50.1); Hemoglobin 11.5 g/dL (12.9-16.9); Mean Corpuscular HGB Conc 32.5 g/dL (31.6-35.5); Mean Corpuscular Hemoglobin 31.1 pg (28.0-33.3); Mean Corpuscular Volume 95.7 fL (83.0-100.0); Mean Platelet Volume 9.4 fL (9.4-12.4); Platelet Count 301 K/mcL (140-400); Red Cell Distribution Width 14.9 % (11.5-14.5); White Blood Count 7.2 K/mcL (4.3-11.1)
[2022-04-23 05:24] LABS: VBG Base Excess 3 mEq/L; VBG Chloride 101 mEq/L (98-107); VBG Glucose 110 mg/dl (65-95); VBG HCO3 30 mEq/L (21-27); VBG Ionized Calcium 1.24 mmol/L (1.15-1.35); VBG Oxygen Saturation 94 %; VBG PCO2 57 mmHg (41-51); VBG PH 7.32 pH Units (7.32-7.42); VBG PO2 78 mmHg (25-50); VBG Total CO2 32 mEq/L
[2022-04-23 05:34] LABS: Ethanol < 10 mg/dL (Less than 10)
[2022-04-23 05:35] LABS: Troponin I < 0.03 ng/mL (< 0.04)
[2022-04-23 05:46] LABS: BUN/Creatinine Ratio 17 (6-26); Blood Urea Nitrogen 15 mg/dL (6-20); Calcium 9.5 mg/dL (8.6-10.3); Carbon Dioxide 29 mEq/L (23-29); Chloride 102 mEq/L (98-107); Chol/HDL Ratio 3.6 (0-4.9); Cholesterol 118 mg/dL (< 200); Glucose 108 mg/dL (70-105); HDL Cholesterol 33 mg/dL (40-59); LDL Cholesterol,Calculated 70 mg/dL (< 100); Magnesium 1.9 mg/dL (1.6-2.6); Osmolality,Calculated 287 (280-300); Phosphorous 4.9 mg/dL (2.7-4.5); Potassium 3.8 mEq/L (3.5-5.1); Sodium 138 mEq/L (136-145); Triglycerides 74 mg/dL (< 150); eGFR For African Americans > 60 (> 60); eGFR For Non-African Americans > 60 (> 60)
[2022-04-23 05:51] LABS: Estimated Average Glucose 140 mg/dl; Hemoglobin A1C 6.5 %
[2022-04-23 05:55] LABS: Thyroid Stimulating Hormone 3.019 mcIU/mL (0.340-5.600)
[2022-04-23] MEDS: Acetaminophen 325 MG TABLET PO PRN (06:51)
[2022-04-23 07:58] LABS: Adenovirus Not Detected (Not Detect); Bordetella Pertussis Not Detected (Not Detect); Chlamydophila pneumoniae Not Detected (Not Detect); Coronavirus 229E Not Detected (Not Detect); Coronavirus HKU1 Not Detected (Not Detect); Coronavirus NL63 Not Detected (Not Detect); Coronavirus OC43 Not Detected (Not Detect); Human Metapneumovirus Not Detected (Not Detect); Human Rhinovirus/Enterovirus Not Detected (Not Detect); Influenza A Subtype 2009 H1 Not Detected (Not Detect); Influenza B Not Detected (Not Detect); Mycoplasma pneumoniae Not Detected (Not Detect); Parainfluenza Virus 1 Not Detected (Not Detect); Parainfluenza Virus 2 Not Detected (Not Detect); Parainfluenza Virus 3 Not Detected (Not Detect); Parainfluenza Virus 4 Not Detected (Not Detect); Respiratory Syncytial Virus Not Detected (Not Detect); SARS-CoV-2 Not Detected (Not Detect)
[2022-04-23] MEDS: Aspirin 81 MG TAB.CHEW PO SCH (08:26)
[2022-04-23] MEDS ORDERED: Isovue-370 500 ML BOTTLE IVP ONE (09:51)
[2022-04-23] MEDS: predniSONE 20 MG TABLET PO SCH (10:33)
[2022-04-23 14:27] LABS: Bilirubin,Urine Negative (Negative); Blood,Urine Negative (Negative); Clarity,Urine Clear (Clear); Color,Urine Yellow (Yellow); Glucose,Urine (UA) Normal (Normal); Ketones,Urine Negative (Negative); Leukocyte Esterase,Urine Negative (Negative); Nitrite,Urine Negative (Negative); Protein,Urine Negative (Neg-Trace); Specific Gravity,Urine 1.019 (1.010-1.025); Urobilinogen,Urine Normal (Normal)
[2022-04-23 14:54] LABS: Amphetamine Screen,Urine Negative ng/mL (Cutoff=1000); Barbiturate Screen,Urine Negative ng/mL (Cutoff=200); Benzodiazepines Screen,Urine Negative ng/mL (Cutoff=200); Cannabinoid Screen,Urine Negative ng/mL (Cutoff = 50); Cocaine Screen,Urine Negative ng/mL (Cutoff= 300); Opiate Screen,Urine Negative ng/mL (Cutoff=300); Phencyclidine Screen,Urine Negative ng/mL (Cutoff=25)
[2022-04-23] MEDS: cefTRIAXone 1,000 MG in 0.9 % Sodium Chloride Mini Bag 100 ML IVPB SCH (15:35)
[2022-04-23] MEDS: Azithromycin 500 MG in 0.9 % Sodium Chloride 250 ML IVPB SCH (15:36)
[2022-04-23] MEDS: Ranolazine 500 MG TAB.ER.12H PO SCH (21:08)
[2022-04-24 03:10] LABS: Basophils % 0.3 %; Eosinophils % 0.1 %; Hematocrit 36.3 % (37.5-50.1); Hemoglobin 11.9 g/dL (12.9-16.9); Immature Granulocytes % 0.4 % (0-4); Lymphocytes # 1.2 K/mcL (0.6-4.6); Lymphocytes % 13.4 %; Mean Corpuscular HGB Conc 32.8 g/dL (31.6-35.5); Mean Corpuscular Hemoglobin 31.2 pg (28.0-33.3); Mean Corpuscular Volume 95.3 fL (83.0-100.0); Mean Platelet Volume 9.4 fL (9.4-12.4); Monocytes # 1.2 K/mcL (0.0-1.3); Monocytes % 13.1 %; Neutrophils # 6.5 K/mcL (1.6-8.9); Platelet Count 329 K/mcL (140-400); Red Blood Count 3.81 M/mcL (4.19-5.50); Red Cell Distribution Width 14.3 % (11.5-14.5); Segmented Neutrophils % 72.7 %
[2022-04-24 03:26] LABS: BUN/Creatinine Ratio 20 (6-26); Blood Urea Nitrogen 15 mg/dL (6-20); Calcium 9.3 mg/dL (8.6-10.3); Carbon Dioxide 27 mEq/L (23-29); Chloride 104 mEq/L (98-107); Glucose 94 mg/dL (70-105); Osmolality,Calculated 287 (280-300); Potassium 3.9 mEq/L (3.5-5.1); Sodium 138 mEq/L (136-145); eGFR For African Americans > 60 (> 60); eGFR For Non-African Americans > 60 (> 60)
[2022-04-24] MEDS ORDERED: *HR* Enoxaparin 40 MG/0.4 ML SYRINGE SQ SCH (06:00)
[2022-04-24] MEDS: cefTRIAXone 1,000 MG in 0.9 % Sodium Chloride Mini Bag 100 ML IVPB SCH (08:42)
[2022-04-24] MEDS: predniSONE 20 MG TABLET PO SCH (08:43)
[2022-04-24] MEDS: Aspirin 81 MG TAB.CHEW PO SCH (08:43)
[2022-04-24] MEDS: Ranolazine 500 MG TAB.ER.12H PO SCH (08:43)
[2022-04-24] MEDS ORDERED: Metoprolol XL (24 HR) Succ 25 MG TAB.ER.24H PO SCH (09:00)
[2022-04-24] MEDS ORDERED: Isosorbide MONOnitrate (24 HR) 60 MG TAB.ER.24H PO SCH (09:00)
[2022-04-24] MEDS ORDERED: Aspirin Enteric Coated 325 MG Tablet PO SCH (09:00)
[2022-04-24] MEDS ORDERED: Furosemide 40 MG TABLET PO SCH (09:00)
[2022-04-24] MEDS ORDERED: Azithromycin 500 MG VIAL ONE (14:15)
[2022-04-24] MEDS: Acetaminophen 325 MG TABLET PO PRN (14:19)
[2022-04-24] MEDS: Azithromycin 500 MG in 0.9 % Sodium Chloride 250 ML IVPB SCH (14:20)
[2022-04-24 14:33] VITALS: BP 117/74; PULSE 86; TEMP 98.5; O2SAT 91
== END 2022-04-24 16:30 | disposition home or self-care (01) ==
LOC: EMEROOARM 21:24 → 3BNU 21:24 → SUATTDRO 04-23 01:41 → 3BNU 04-23 02:14
PROVIDERS: ADMIT Internal Medicine; ATTEND Registered Nurse

== ENCOUNTER 2022-05-08 22:03 | Observation (INO) ==
[2022-05-08 23:13] LABS: Basophils # 0.1 K/mcL (0.0-0.2); Basophils % 0.5 %; Eosinophils # 0.3 K/mcL (0.0-0.6); Hematocrit 35.2 % (37.5-50.1); Hemoglobin 11.4 g/dL (12.9-16.9); Immature Granulocytes % 0.4 % (0-4); Lymphocytes # 1.5 K/mcL (0.6-4.6); Lymphocytes % 13.5 %; Mean Corpuscular HGB Conc 32.4 g/dL (31.6-35.5); Mean Corpuscular Hemoglobin 31.5 pg (28.0-33.3); Mean Corpuscular Volume 97.2 fL (83.0-100.0); Monocytes # 1.1 K/mcL (0.0-1.3); Monocytes % 9.7 %; Platelet Count 280 K/mcL (140-400); Red Blood Count 3.62 M/mcL (4.19-5.50); Segmented Neutrophils % 72.9 %; White Blood Count 10.9 K/mcL (4.3-11.1)
[2022-05-08 23:15] LABS: Influenza A PCR Negative (Negative); Influenza B PCR Negative (Negative); Resp. Syncytial Virus PCR Negative (Negative); SARS-CoV-2 by PCR (In House) Negative (Negative)
[2022-05-08 23:23] LABS: BUN/Creatinine Ratio 14 (6-26); Blood Urea Nitrogen 16 mg/dL (6-20); Calcium 9.3 mg/dL (8.6-10.3); Carbon Dioxide 24 mEq/L (23-29); Chloride 104 mEq/L (98-107); Glucose 132 mg/dL (70-105); Osmolality,Calculated 289 (280-300); Potassium 3.5 mEq/L (3.5-5.1); Sodium 138 mEq/L (136-145); Troponin I < 0.03 ng/mL (< 0.04); eGFR For African Americans > 60 (> 60); eGFR For Non-African Americans > 60 (> 60)
[2022-05-08] MEDS ORDERED: Ipratropium/Albuterol Neb 3 ML IH ONE (23:44)
[2022-05-08] MEDS ORDERED: methylPREDNISolone 125 MG/2 ML VIAL IVP ONE (23:44)
[2022-05-08] MEDS ORDERED: Furosemide 40 MG/4 ML VIAL IVP ONE (23:51)
[2022-05-09] MEDS ORDERED: Acetaminophen 325 MG TABLET PO ONE (00:07)
[2022-05-09] MEDS ORDERED: Ipratropium/Albuterol Neb 3 ML IH ONE (00:38)
[2022-05-09] MEDS ORDERED: Ondansetron ODT 4 MG TAB.RAPDIS SL PRN (06:11)
[2022-05-09] MEDS ORDERED: Melatonin 3 MG TABLET PO PRN (06:11)
[2022-05-09] MEDS ORDERED: Naloxone 0.4 MG/ML INJ IVP PRN (06:11)
[2022-05-09] MEDS ORDERED: Aspirin 325 MG TABLET PO ONE (06:20)
[2022-05-09] MEDS: cefTRIAXone 1,000 MG in 0.9 % Sodium Chloride Mini Bag 100 ML IVPB SCH ×2 (08:02→08:18)
[2022-05-09] MEDS: Azithromycin 500 MG in 0.9 % Sodium Chloride 250 ML IVPB SCH (08:02)
[2022-05-09] MEDS: MethylPREDNISolone 40 MG/ML VIAL IVP SCH ×2 (08:02→15:23)
[2022-05-09] MEDS: Budesonide/Formoterol 160/4.5 1 PUFF INH IH SCH ×2 (10:59→21:16)
[2022-05-09] MEDS: Ipratropium/Albuterol Neb 3 ML IH SCH ×3 (10:59→21:16)
[2022-05-09] MEDS: *HR* HYDROcodone/Acet 5/325 mg TABLET PO PRN ×2 (11:21→20:07)
[2022-05-09] MEDS: Furosemide 40 MG TABLET PO SCH (11:46)
[2022-05-09 14:55] LABS: Adenovirus Not Detected (Not Detect); Bordetella Pertussis Not Detected (Not Detect); Chlamydophila pneumoniae Not Detected (Not Detect); Coronavirus 229E Not Detected (Not Detect); Coronavirus HKU1 Not Detected (Not Detect); Coronavirus NL63 Not Detected (Not Detect); Coronavirus OC43 Not Detected (Not Detect); Human Metapneumovirus Not Detected (Not Detect); Human Rhinovirus/Enterovirus Not Detected (Not Detect); Influenza A Subtype 2009 H1 Not Detected (Not Detect); Influenza B Not Detected (Not Detect); Mycoplasma pneumoniae Not Detected (Not Detect); Parainfluenza Virus 1 Not Detected (Not Detect); Parainfluenza Virus 2 Not Detected (Not Detect); Parainfluenza Virus 3 Not Detected (Not Detect); Parainfluenza Virus 4 Not Detected (Not Detect); Respiratory Syncytial Virus Not Detected (Not Detect); SARS-CoV-2 Not Detected (Not Detect)
[2022-05-09] MEDS: *HR* OxyCODONE/APAP 5/325 TABLET PO PRN ×2 (15:23→21:58)
[2022-05-09] MEDS: *HR* Heparin 5,000 UNIT/ML VIAL SQ SCH (17:06)
[2022-05-09] MEDS ORDERED: traZODone 50 MG TABLET PO SCH (21:00)
[2022-05-10] MEDS: MethylPREDNISolone 40 MG/ML VIAL IVP SCH ×2 (00:45→08:28)
[2022-05-10] MEDS: *HR* HYDROcodone/Acet 5/325 mg TABLET PO PRN ×2 (02:19→08:30)
[2022-05-10] MEDS: Ipratropium/Albuterol Neb 3 ML IH SCH ×2 (03:55→10:30)
[2022-05-10 03:58] LABS: Hematocrit 35.3 % (37.5-50.1); Hemoglobin 11.2 g/dL (12.9-16.9); Mean Corpuscular HGB Conc 31.7 g/dL (31.6-35.5); Mean Corpuscular Hemoglobin 30.9 pg (28.0-33.3); Mean Corpuscular Volume 97.5 fL (83.0-100.0); Mean Platelet Volume 10.2 fL (9.4-12.4); Platelet Count 320 K/mcL (140-400); Red Blood Count 3.62 M/mcL (4.19-5.50); Red Cell Distribution Width 14.6 % (11.5-14.5)
[2022-05-10 04:01] LABS: White Blood Count 17.5 K/mcL (4.3-11.1)
[2022-05-10] MEDS: *HR* Heparin 5,000 UNIT/ML VIAL SQ SCH (04:52)
[2022-05-10] MEDS: *HR* OxyCODONE/APAP 5/325 TABLET PO PRN ×2 (04:52→11:33)
[2022-05-10] MEDS: Gabapentin 400 MG CAPSULE PO SCH ×2 (05:42→08:28)
[2022-05-10] MEDS: Azithromycin 500 MG in 0.9 % Sodium Chloride 250 ML IVPB SCH (05:54)
[2022-05-10 06:22] LABS: BUN/Creatinine Ratio 28 (6-26); Blood Urea Nitrogen 22 mg/dL (6-20); Calcium 9.4 mg/dL (8.6-10.3); Carbon Dioxide 26 mEq/L (23-29); Chloride 104 mEq/L (98-107); Glucose 295 mg/dL (70-105); Osmolality,Calculated 298 (280-300); Potassium 3.9 mEq/L (3.5-5.1); Sodium 137 mEq/L (136-145); eGFR For African Americans > 60 (> 60); eGFR For Non-African Americans > 60 (> 60)
[2022-05-10 07:01] VITALS: TEMP 97.8
[2022-05-10] MEDS: Furosemide 40 MG TABLET PO SCH (08:28)
[2022-05-10] MEDS: cefTRIAXone 1,000 MG in 0.9 % Sodium Chloride Mini Bag 100 ML IVPB SCH (08:28)
[2022-05-10] MEDS ORDERED: Aspirin Enteric Coated 81 MG Tablet PO SCH (09:00)
[2022-05-10] MEDS: Budesonide/Formoterol 160/4.5 1 PUFF INH IH SCH (10:31)
[2022-05-10 10:33] VITALS: O2SAT 99
[2022-05-10 10:39] VITALS: BP 114/53; PULSE 89
[2022-05-10] MEDS ORDERED: predniSONE 20 MG TABLET PO SCH (11:45)
== END 2022-05-10 13:18 | disposition home or self-care (01) ==
LOC: EMEROOARM 22:03 → 2NENU 22:03 → SUATTDRO 05-09 04:32 → 2NENU 05-09 05:17
PROVIDERS: ADMIT Student in an Organized Health Care Education/Training Program; ATTEND Internal Medicine